=== PATIENT | female | born 1960 | race Caucasian/White ===

== ENCOUNTER 2019-09-17 14:45 | Emergency (ER) | payer OTHER ==
[2019-09-17] MEDS ORDERED: CLINDAMYCIN 900 MG/50 ML 50 ML IV ONE (14:59)
[2019-09-17 15:12] LABS: BASOPHILS % (AUTO) 0.2 %; EOSINOPHILS # (AUTO) 0.1 10^3/uL (0.0-0.7); EOSINOPHILS % (AUTO) 0.8 %; HGB - HEMOGLOBIN 12.9 g/dL (12.0-16.0); LYMPHOCYTES # (AUTO) 1.5 10^3/uL (1.5-3.5); LYMPHOCYTES % (AUTO) 15.8 %; MEAN CORPUSCULAR HEMOGLOBIN 27.9 pg (27.0-31.0); MEAN CORPUSCULAR VOLUME 89.8 fL (81.0-99.0); MONOCYTES # (AUTO) 0.6 10^3/uL (0.0-1.0); MONOCYTES % (AUTO) 6.7 %; NEUTROPHILS # (AUTO) 7.2 10^3/uL (1.5-6.6); NEUTROPHILS % (AUTO) 76.1 %; PLT - PLATELET COUNT 261 10^3/uL (130-450); RED BLOOD COUNT 4.63 10^6/uL (4.20-5.40); RED CELL DISTRIBUTION WIDTH 13.1 % (12.0-15.0); WHITE BLOOD COUNT 9.5 x10^3/uL (4.8-10.8)
[2019-09-17 15:23] LABS: CALCIUM 9.1 mg/dL (8.5-10.3); CREATININE 0.6 mg/dL (0.4-1.0)
--- NOTE | 2019-09-17 15:24 | ED Physician Documentation ---
PD HPI HEENT - Stated complaint Stated Complaint: RT FACE SWELLING - Chief complaint Chief Complaint: Heent - History obtained from History obtained from: Patient - Additional information Additional information: 58-year-old woman with type 2 diabetes presents with worsening dental pain. She has had severe dental pain from a Right mandibular molar for the last few nights. Started dentist yesterday was started on clindamycin. Despite that she has more pain and swelling and she feels like her neck is swollen and she cannot open her mouth all the way. No fevers. 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 : None HEENT: None Psych: None Musculoskeletal: None Derm: None - Past Surgical History Past Surgical History: No - Allergies Allergies/Adverse Reactions: Allergies Allergy/AdvReac Type Severity Reaction Status Date / Time Penicillins Allergy Anaphylaxis Verified 09/17/19 14:53 Sulfa (Sulfonamide Allergy Anaphylaxis Verified 09/17/19 14:53 Antibiotics) - Social History Does the pt smoke?: No Smoking Status: Never smoker Does the pt have substance abuse?: No PD ED PE NORMAL - Vitals Vital signs reviewed: Yes - General General: Alert and oriented X 3, No acute distress - HEENT HEENT: Other (She does have trismus on exam, can only open the mouth about 2 fingerbreadths. There is no sublingual edema, but she does have some sublingual tenderness. There is some mild brawny edema around the angle of the jawline down onto the right side of the right neck. No obvious adenopathy.) - Neck Neck: Supple, no meningeal sign, No bony TTP - Cardiac Cardiac: RRR, No murmur - Respiratory Respiratory: No respiratory distress, Clear bilaterally - Abdomen Abdomen: Normal bowel sounds, Soft, Non tender - Back Back: No CVA TTP, No spinal TTP - Derm Derm: Warm and dry, No rash - Extremities Extremities: No edema, No calf tenderness / cord - Neuro Neuro: Alert and oriented X 3, Normal speech Results - Vitals Vitals: Vital Signs - 24 hr 09/17/19 14:51 Temperature 36.6 C Heart Rate 73 Respiratory 14 Rate Blood Pressure 161/77 H O2 Saturation 97 Oxygen O2 Source Room air - Labs Labs: Laboratory Tests 09/17/19 09/17/19 15:05 15:05 WBC 9.5 RBC 4.63 Hgb 12.9 Hct 41.6 MCV 89.8 MCH 27.9 MCHC 31.0 L RDW 13.1 Plt Count 261 MPV 9.0 Neut # (Auto) 7.2 H Lymph # (Auto) 1.5 [place] # (Auto) 0.6 Eos # (Auto) 0.1 Baso # (Auto) 0.0 Absolute Nucleated RBC 0.00 Nucleated RBC % 0.0 Sodium 138 Potassium 3.6 Chloride 101 Carbon Dioxide 26 Anion Gap 11.0 BUN 13 Creatinine 0.6 Estimated GFR (MDRD) 103 Glucose 146 H Calcium 9.1 - Rads (name of study) CT Neck Radiology: EMP read contemporaneously (Right mandibular region subcutaneous edema, adenopathy and masseter myositis without underlying abscess or evidence of osteomyelitis. Groundglass in the lung apices.) PD MEDICAL DECISION MAKING - ED course ED course: 58-year-old woman with history of diabetes, presentation concerning for early Gilbert's. CT without any abscess. Case discussed by phone with Dr. Guru Isaacs, he will see her in the office tomorrow as there does not seem to be an indication for surgical procedure now. Received 900 mg of clindamycin IV here. Departure - Departure Disposition: 01 Home, Self Care Clinical Impression: Dental abscess Condition: Good Record reviewed to determine appropriate education?: Yes Instructions: ED Dental Abscess Facial Cellulitis Comments: As discussed, the oral surgeon knows about you and you need to follow-up with him tomorrow, his name is Guru Isaacs, his office is in [place], [place] [address], [place], [address]. Call first thing in the morning at [phone]. Continue the antibiotics and painkillers that your dentist gave you.
[2019-09-17] MEDS ORDERED: IOVERSOL 320 100 ML VIAL IVP ONE ×2 (15:37→15:56)
[2019-09-17] MEDS ORDERED: KETOROLAC 30 MG/ML VIAL IVP STA (16:03)
--- NOTE | 2019-09-17 16:26 | CT Report ---
PROCEDURE: SOFT TISSUE NECK W INDICATIONS: R mandibular infection, poss ludwigs CONTRAST: IV CONTRAST: Optiray 320 ml: 100 PO CONTRAST: *NO PO CONTRAST TECHNIQUE: After the administration of intravenous contrast, 3.0 mm axial sections acquired from the sella to th e aortic arch. Additional oblique axial 3.0 mm sections acquired through the pharynx. 3 mm thick co crystal reformats were generated. For radiation dose reduction, the following was used: automated exp osure control, adjustment of mA and/or kV according to patient size. COMPARISON: None. FINDINGS: Image quality: Excellent. Lymph nodes: Right cervical and submental lymph nodes are more numerous on the right than left and mi ldly enlarged. Vessels: Visualized vasculature appears patent. Neck spaces: The oropharynx, nasopharynx, and pharynx demonstrate no mucosal lesions. The vocal cor ds, false vocal cords, pyriform sinuses, epiglottis, vallecula, and tongue base all appear normal. E xtramucosal spaces appear unremarkable. Glands: There is prominence of the right submandibular gland. The parotid glands appear symmetric. T he thyroid gland is normal. Miscellaneous: There is swelling and subcutaneous edema within the tissues of the right mandibular a harish and extending past the level of the thyroid cartilage. There are no drainable fluid collections. Hazy edema involves the right superficial masseter muscle which is thickened. Visualized brain and orbits appear normal. Lung apices demonstrate numerous small nodular groundglas s opacities in the apices, no dense consolidation.. Bones: Periodontal lucencies involving the posterior mandibular molars on the right and left bilater ally. Cortex appears intact. Moderate degenerative disc and endplate disease in the cervical spine and reversal of the normal cerv ical lordosis, potentially reactive. No suspicious bony lesions. Left maxillary sinus mucus retention cyst posteriorly. Visualized sinuses and mastoids appear otherwise unremarkable. IMPRESSION: 1. Right mandibular region subcutaneous edema, adenopathy, and masseter myositis without underlying a bscess or evidence of osteomyelitis. 2. Groundglass and nodular appearance present in both lung apices. Correlate clinically and consider chest imaging if the patient is symptomatic. Reviewed by: Alice Diaz MD on 09/17/2019 3:24 PM BROCK Approved by: Alice Diaz MD on 09/17/2019 3:24 PM AKDT Station ID: [id number]
[2019-09-17 17:05] VITALS: BP 158/119
== END 2019-09-17 17:12 | disposition home or self-care (01) ==
LOC: ED 14:45
DX: K04.7 Periapical abscess without sinus (principal); E11.9 Type 2 diabetes mellitus without complications
CPT/HCPCS: 36415; 70491; 80048; 85025; 96365; 96375; 99284; Q9967

== ENCOUNTER 2020-06-18 11:07 | Outpatient (CLI) | payer SELFPAY ==
[2020-06-18 15:33] LABS: ALBUMIN 4.1 g/dL (3.2-5.5); BUN - BLOOD UREA NITROGEN 21 mg/dL (6-20); CALCIUM 9.5 mg/dL (8.5-10.3); CARBON DIOXIDE - CO2 30 mmol/L (21-32); CHLORIDE 96 mmol/L (101-111); CHOLESTEROL 109 mg/dL; CREATININE 0.6 mg/dL (0.4-1.0); GFR - MDRD 103 (>89); GLUCOSE 190 mg/dL (70-100); HDL CHOLESTEROL 36 mg/dL; LDL CHOLESTEROL,CALCULATED 12 mg/dL; LDL/HDL RATIO 0.3 (<4.4); POTASSIUM 4.3 mmol/L (3.5-5.0); SODIUM 135 mmol/L (135-145); TRIGLYCERIDES 306 mg/dL; VLDL CHOLESTEROL 61 mg/dL
[2020-06-18 19:35] LABS: ESTIMATED AVERAGE GLUCOSE 180 mg/dL (70-100); HEMOGLOBIN A1c% 7.9 % (4.27-6.07)
== END 2020-06-18 11:08 | disposition home or self-care (01) ==
LOC: LAB.S 11:07
PROVIDERS: ATTEND Family Medicine
DX: E11.69 Type 2 diabetes mellitus with other specified complication (principal)
CPT/HCPCS: 36415; 80048; 80061; 82040; 83036; 83721

== ENCOUNTER 2022-10-01 14:57 | Outpatient (CLI) | payer OTHER | END 2022-10-01 14:58 | disposition EMS.NT | LOC: EMS 14:57 | DX: S61.452A Open bite of left hand, initial encounter (principal); S51.852A Open bite of left forearm, initial encounter; W54.0XXA Bitten by dog, initial encounter; Y93.K9 Activity, other involving animal care; Y92.89 Other specified places as the place of occurrence of the external cause; Y99.2 Volunteer activity ==

== ENCOUNTER 2022-12-27 12:17 | Outpatient (CLI) | payer BC ==
[2022-12-27 12:40] LABS: BASOPHILS # (AUTO) 0.1 10^3/uL (0.0-0.1); BASOPHILS % (AUTO) 0.8 %; EOSINOPHILS # (AUTO) 0.3 10^3/uL (0.0-0.7); EOSINOPHILS % (AUTO) 2.7 %; HCT - HEMATOCRIT 41.7 % (37.0-47.0); HGB - HEMOGLOBIN 12.3 g/dL (12.0-16.0); LYMPHOCYTES # (AUTO) 1.9 10^3/uL (1.5-3.5); LYMPHOCYTES % (AUTO) 21.1 %; MEAN CORPUSCULAR HEMOGLOBIN 25.4 pg (27.0-31.0); MEAN CORPUSCULAR HGB CONC 29.5 g/dL (32.0-36.0); MEAN PLATELET VOLUME 9.3 fL (7.9-10.8); MONOCYTES # (AUTO) 0.5 10^3/uL (0.0-1.0); MONOCYTES % (AUTO) 5.7 %; NEUTROPHILS # (AUTO) 6.3 10^3/uL (1.5-6.6); NEUTROPHILS % (AUTO) 69.4 %; PLT - PLATELET COUNT 295 10^3/uL (130-450); RED BLOOD COUNT 4.85 10^6/uL (4.20-5.40); RED CELL DISTRIBUTION WIDTH 14.3 % (12.0-15.0); WHITE BLOOD COUNT 9.1 x10^3/uL (4.8-10.8)
[2022-12-27 13:00] LABS: ALBUMIN 4.1 g/dL (3.2-5.5); ALBUMIN/GLOBULIN RATIO 1.4 (1.0-2.2); ALKALINE PHOSPHATASE 60 IU/L (42-121); ALT ALANINE AMINOTRANSFERASE 19 IU/L (10-60); AST ASPARTATE AMINOTRANSFERASE 15 IU/L (10-42); BILIRUBIN,TOTAL 0.4 mg/dL (0.2-1.0); BUN - BLOOD UREA NITROGEN 23 mg/dL (6-20); CALCIUM 9.2 mg/dL (8.5-10.3); CARBON DIOXIDE - CO2 34 mmol/L (21-32); CHLORIDE 100 mmol/L (101-111); CHOL/HDL RATIO 2.7 (<4.4); CHOLESTEROL 104 mg/dL; CREATININE 0.5 mg/dL (0.6-1.3); GFR - MDRD 125 (>89); GLUCOSE 106 mg/dL (74-104); HDL CHOLESTEROL 38 mg/dL; LDL CHOLESTEROL,CALCULATED 21 mg/dL; LDL/HDL RATIO 0.6 (<4.4); SODIUM 137 mmol/L (135-145); TOTAL PROTEIN 7.1 g/dL (6.4-8.9); TRIGLYCERIDES 224 mg/dL (48-352); VLDL CHOLESTEROL 45 mg/dL
[2022-12-27 13:06] LABS: CREATININE,URINE 69.4 mg/dL; MICROALBUM/CREATININE RATIO,UR 24.5 ug/mg (<30.0); MICROALBUMIN,URINE 1.7 mg/dL
[2022-12-27 13:45] LABS: ESTIMATED AVERAGE GLUCOSE 151 mg/dL (70-100); HEMOGLOBIN A1c% 6.9 % (4.27-6.07)
== END 2022-12-27 12:18 | disposition home or self-care (01) ==
LOC: LAB 12:17
PROVIDERS: ATTEND Physician Assistant
DX: E11.69 Type 2 diabetes mellitus with other specified complication (principal); E78.5 Hyperlipidemia, unspecified; E78.1 Pure hyperglyceridemia; I10 Essential (primary) hypertension
CPT/HCPCS: 36415; 80053; 80061; 82043; 82306; 82570; 82607; 83036; 83721; 85025

== ENCOUNTER 2023-04-06 09:06 | Outpatient (CLI) | payer BC ==
--- NOTE | 2023-04-06 09:39 | Sleep Patient Instructions ---
Sleep Center Visit Summary - Patient Visit Information Reason for Visit: Initial consultation - Patient Instructions Instructions Attached: Sleep Study Home Monitor Additional Instructions: You will be completing a sleep study, either an in-lab polysomnography (PSG) or home sleep study (HST). You will follow-up in the sleep care office after the sleep study is completed to hear the results and talk about therapy, if needed. You will be called by our office staff to schedule this appointment, but you may contact us with any questions. - Clinic Information Contact: [facility] [address] [place] [address] [email or web address] T: [phone]
--- NOTE | 2023-04-06 09:49 | SLEEP CARE CONSULTATION ---
Information from patient questionnaire entered by Jaime Bustos. I have reviewed and concur with the information entered by Jaime Bustos. This document represents the service I personally performed and the decisions made by me, Pricila Lainez ARNP. History of Present Illness Service Date and Time: 04/06/2023 09 Reason for Visit: New patient ( ), Previously diagnosed sleep apnea Chief Complaint: reports: Insomnia, Unrefreshed sleep, Snoring, Excessive daytime sleepiness, Observed pauses in breathing, Fatigue, Frequent awakenings at night Date of Onset: SEVERAL MONTHS PROGESSIVELY WORSE Usual bedtime: 9 Time it takes to fall asleep: SOMETIMES HOURS Snores at night: Yes Observed to quit breathing while asleep: Yes Sleeps alone due to snoring: No Number of times waking at night: 2-5 Reasons for waking at night: reports: Bathroom, Other (UNKNOWN). denies: Choking, Snoring, Gasping for air Toss, Turn, or Twitch while sleeping: Yes Recalls having dreams: Yes Usually gets out of bed at: 6AM-730AM Feels refreshed in the morning: Yes (sometimes) Morning headache: No Sleepy or fatigued during the day: Yes (some unintentional naps) Ever fallen asleep while driving: No Takes day naps: Yes (3-4 days a week; last 1 hour; would like to take daily) Dreams during day naps: Yes Prior sleep studies: Yes Additional HPI information: WAI HOLLEY was previously diagnosed to have severe, AHI 47, obstructive sleep apnea-hypopnea syndrome as documented in titration study done at [facility] on 09/29/2009 and comes in today to re-establish care. Her current complaints are excessive daytime sleepiness, fatigue, frequent night awakenings, insomnia, observed pauses in breathing, snoring and unrefreshed sleep. Patient states she lost a lot of weight and so she stopped using her CPAP because she did not feel she needed it. She has since regained the weight and her previous symptoms have returned and are worsening. She was last tested around 2004 and did a titration study here in 2009. She states her tells her that she snores loudly and is having pauses in breathing. She does not wake up feeling refreshed all the time and feels she is waking up frequently at night. She can take hours to fall asleep at the beginning of the night. 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 Patient is and lives in [place]. Have you smoked in the past 12 months: No Cigarettes per day (20/pack): 30 Years of smokin Quit date: 1989 Smoking Pack Years: 30.0 Alcohol use: No Caffeine use: No Family History Family history of sleep disordered breathing: Yes Family Hx Sleep Apnea: Mother: Sleep apnea - Treated, Sibling: Sleep apnea - Treated Allergies and Home Medications Known drug allergies: Yes (as listed) Drug allergies reviewed: Yes Home medication list reviewed: Yes (as listed) Allergy and home medication list: Allergies Penicillins Allergy (Verified 04/05/23 12:13) Anaphylaxis Sulfa (Sulfonamide Antibiotics) Allergy (Verified 04/05/23 12:13) Anaphylaxis Home Medications Medication Instructions Recorded Confirmed Last Taken Type Apixaban [Eliquis] See Rx Instructions .ROUTE .COMPLEX 04/06/23 04/06/23 Unknown History Atorvastatin Calcium See Rx Instructions .ROUTE .COMPLEX 04/06/23 04/06/23 Unknown History Insulin Aspart [Insulin Aspart See Rx Instructions .ROUTE .COMPLEX 04/06/23 04/06/23 Unknown History Flexpen] Insulin NPH Human Isophane See Rx Instructions .ROUTE .COMPLEX 04/06/23 04/06/23 Unknown History [Novolin N Flexpen] Losartan [Cozaar] See Rx Instructions .ROUTE .COMPLEX 04/06/23 04/06/23 Unknown History Omeprazole See Rx Instructions .ROUTE .COMPLEX 04/06/23 04/06/23 Unknown History Ubidecarenone [Coenzyme Q-10] See Rx Instructions .ROUTE .COMPLEX 04/06/23 04/06/23 Unknown History dilTIAZem HCL [Diltiazem 24Hr ER] See Rx Instructions .ROUTE .COMPLEX 04/06/23 04/06/23 Unknown History Review of Systems Weight gain over past 5 years: 70 Cardiovascular: reports: high blood pressure, palpitations, irregular heart rate or pulse Respiratory: reports: shortness of breath, wheeze, chronic cough Gastrointestinal: reports: heartburn Neurological: denies: headaches Psychiatric: denies: anxiety, depression Ear/Nose/Throat: denies: tonsillectomy Endocrine: reports: sluggishness Musculoskeletal: reports: joint pain, muscle pain or cramping Physical Exam Vital signs obtained and entered by: JAIME Ashraf MA Blood Pressure: 149/72 (RIGHT ARM) Cuff size: regular Heart Rate: 79 O2 Saturation: 87 Height: 5 ft 6.75 in Weight: 237 lb 3.2 oz Body Mass Index: 37.4 BMI Classification: Obese Neck circumference: 19.75 Mouth and throat: narrow oropharynx Soft palate: long Hard palate: normal Uvula: normal Uvula visualization: 0% Mallampati Class IV Tongue: normal in size Tonsils: 2+ Neck: normal w/o lymphadenopathy or thyromegaly Heart: regular rate and rhythm Lungs: clear bilaterally Impression and Plan 1. Suspected Obstructive Sleep Apnea-Hypopnea Syndrome, as previously diagnosed and as suggested by a history of loud and irregular snoring, observed cessation of breath while asleep, frequent awakening during the night, unrefreshed sleep, cognitive impairment, and excessive daytime sleepiness. She has not been using a CPAP for many years and has gained about 70 pounds in the last 5 years. I recommend proceeding to polysomnography to confirm the diagnosis and to assess severity. I obtained agreement to proceed. The pathophysiology of obstructive sleep apnea-hypopnea syndrome was discussed with the patient and health risks of cardiovascular and cerebrovascular disease if not treated. Risks of drowsy driving discussed in detail and patient advised to avoid long distance driving and to mandrel puller at the first sign of drowsiness. Patient agreed to plan. 2. Obesity, unspecified. Currently patients BMI is 37.4. Obesity increases the risk of apnea, CPAP pressure requirements and overall health risks especially cardiovascular and diabetes. Thus patient is advised to lose weight. * Schedule polysomnography +- manual CPAP titration study and return in 1-2 weeks after the study to discuss result and initiate therapy. * Avoid long distance driving or driving when feeling sleepy. * Avoid alcohol, sedative and muscle relaxant around bedtime. * Attempt to lose weight. * Review instructions provided by trained office staff on how to prepare for the sleep study. * Return for follow-up after sleep study completed. Counseling Topics: Weight loss health impact Plan: PSG/HST Visit Type: In Office Time Spent with Patient (minutes): 30 Provider Statement: I spent 100% of the Face to Face Visit with the patient with greater than 50% spent counseling the patient and coordination of care.
[2023-04-06 09:55] VITALS: BP 149/72; O2SAT 87
== END 2023-04-06 09:07 | disposition home or self-care (01) ==
LOC: SC 09:06
PROVIDERS: ATTEND Nurse Practitioner Family
DX: G47.10 Hypersomnia, unspecified (principal); R53.83 Other fatigue; G47.8 Other sleep disorders; R06.83 Snoring; R06.81 Apnea, not elsewhere classified; E11.9 Type 2 diabetes mellitus without complications; I10 Essential (primary) hypertension; I48.91 Unspecified atrial fibrillation; E66.9 Obesity, unspecified; Z68.37 Body mass index [BMI] 37.0-37.9, adult
CPT/HCPCS: 99203; 99212

== ENCOUNTER 2023-05-09 14:46 | Outpatient (CLI) | payer BC | END 2023-05-09 23:59 | disposition critical access hospital (66) | LOC: EMS 14:46 | DX: R06.02 Shortness of breath (principal); R09.89 Other specified symptoms and signs involving the circulatory and respiratory systems; I16.9 Hypertensive crisis, unspecified; I10 Essential (primary) hypertension | CPT/HCPCS: A0425; A0427 ==

== ENCOUNTER 2023-05-09 15:22 | Inpatient (IN) | payer BC ==
--- NOTE | 2023-05-09 15:39 | ED Physician Documentation ---
PD HPI DYSPNEA - Stated complaint Stated Complaint: LOW O2 - Chief complaint Chief Complaint: Resp - History obtained from History obtained from: Patient - History of Present Illness Inciting event(s): URI Improved by: Other (was Rx Zithromax 5 days pack about 1 1/2 weeks ago without significant improvement ("somewhat better for short time").) Worsened by: Exertion, Coughing Associated symptoms: Cough, Wheezing. No: Fever, Hemoptysis, Chest pain / discomfort, Palpitations, Bilateral edema Similar symptoms before: Has not had sx before Recently seen: Clinic (walk in clinic and referred to ER by EMS with sats 62% there, improved with oxygen and neb enroute by EMS.), Surgery (carpal tunnel surgery 3 weeks ago right wrist, and was told she had somewhat low sats then (but not below 90) and has surgery, so must not have been too alarming to Anesth at the time. She has started with the cough around that time.) Review of Systems Constitutional: reports: Chills, Myalgias, Fatigue Nose: reports: Congestion. denies: Rhinorrhea / runny nose Throat: denies: Sore throat Cardiac: denies: Chest pain / pressure, Palpitations, Pedal edema, Calf pain Respiratory: reports: Dyspnea, Cough, Wheezing GI: reports: Nausea, Diarrhea (loose stools for past couple weeks as well. Nausea but no vomiting.). denies: Abdominal Pain, Vomiting Musculoskeletal: denies: Extremity swelling PD PAST MEDICAL HISTORY - Past Medical History Past Medical History: Yes Cardiovascular: Hypertension, High cholesterol Respiratory: Asthma (not consistent, but intermittent in past. 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 : None HEENT: None Psych: None Musculoskeletal: None Derm: None - Past Surgical History Past Surgical History: No - Present Medications Home Medications: Ambulatory Orders Medication Instructions Recorded Confirmed Insulin Aspart [Insulin Aspart 5 units SUBQ TIDWM 04/06/23 04/06/23 Flexpen] Albuterol Sulfate [Proair 90 mcg IH DAILY 05/09/23 05/09/23 Respiclick] Apixaban [Eliquis] 5 mg PO BID 05/09/23 Atorvastatin Calcium 40 mg PO HS 05/09/23 Insulin NPH Human Isophane 85 units SUBQ BIDWM 05/09/23 [Novolin N Flexpen] Lisinopril/Hydrochlorothiazide 2 each PO DAILY 05/09/23 05/09/23 [Zestoretic 20-12.5 mg Tablet] Losartan Potassium 100 mg PO DAILY 05/09/23 Metformin HCl [Metformin ER 1,000 mg PO BIDWM 05/09/23 Osmotic] Metoprolol Succinate [Toprol Xl] 50 mg PO DAILY 05/09/23 05/09/23 dilTIAZem HCL [Diltiazem 24Hr ER] 180 mg PO DAILY 05/09/23 glipiZIDE [Glipizide] 10 mg PO DAILY 05/09/23 05/09/23 - Allergies Allergies/Adverse Reactions: Allergies Allergy/AdvReac Type Severity Reaction Status Date / Time Penicillins Allergy Anaphylaxis Verified 05/09/23 15:34 Sulfa (Sulfonamide Allergy Anaphylaxis Verified 05/09/23 15:34 Antibiotics) - Social History Does the pt smoke?: No Smoking Status: Never smoker Does the pt drink ETOH?: No Does the pt have substance abuse?: No - Immunizations Immunizations are current?: No - POLST Patient has POLST: No PD ED PE NORMAL - Vitals Vital signs reviewed: Yes - General General: Alert and oriented X 3, No acute distress (has low sats, but not much tachypnea. ), Well developed/nourished - HEENT HEENT: Ears normal, Moist mucous membranes, Pharynx benign - Neck Neck: Supple, no meningeal sign, No adenopathy - Cardiac Cardiac: RRR, No murmur - Respiratory Respiratory: No: Clear bilaterally (decreased tidal volume and diffuse exp wheezing, though not as prominent due to low ability for deep breaths.) - Abdomen Abdomen: Soft, Non tender - Derm Derm: Normal color, Warm and dry - Extremities Extremities: Normal ROM s pain, No edema, No calf tenderness / cord, Other (right volar wrist with healing surgical wound without signs of infection. Forearm without tenderness, swelling, nor warmth. ) - Neuro Neuro: Alert and oriented X 3, No motor deficit, Normal speech Results - Vitals Vitals: Vital Signs - 24 hr 05/09/23 05/09/23 05/09/23 15:29 15:48 16:00 Temperature 36.5 C Heart Rate 85 82 79 Respiratory 18 20 26 H Rate Blood Pressure 180/91 H 177/89 H 176/88 H O2 Saturation 100 97 89 L If not protocol 9 4 : Oxygen Flow, liters/minute 05/09/23 05/09/23 05/09/23 16:02 16:45 17:24 Temperature Heart Rate 82 81 85 Respiratory 22 26 H 18 Rate Blood Pressure 164/85 H O2 Saturation 92 If not protocol 6 : Oxygen Flow, liters/minute Oxygen O2 Source Nasal cannula Oxygen Flow Rate 6 - EKG (time done) 15:58 EKG releavant findings:: EKG personally interpreted by author of this note. Relevant findings are: Rate: Rate (enter#) (79) Rhythm: NSR [place]: Normal Intervals: Normal [place] QRS: Normal Ischemia: Normal ST segments. No: ST elevation c/w ischemia, ST depression - Labs Labs: Laboratory Tests 05/09/23 05/09/23 05/09/23 15:55 16:04 16:04 WBC 11.8 H RBC 4.91 Hgb 11.3 L Hct 42.5 MCV 86.6 MCH 23.0 L MCHC 26.6 L RDW 16.3 H Plt Count 424 MPV 9.7 Neut # (Auto) 10.0 H Lymph # (Auto) 1.2 L [place] # (Auto) 0.5 Eos # (Auto) 0.0 Baso # (Auto) 0.1 Absolute Nucleated RBC 0.00 Nucleated RBC % 0.0 Manual Slide Review Indicated Platelet Estimate NORMAL (130-450,000) Platelet Morphology NORMAL APPEARANCE RBC Morph Micro Appear 1+ HYPOCHROMASIA Sodium Potassium Chloride Carbon Dioxide Anion Gap BUN Creatinine Estimated GFR (MDRD) Glucose Calcium Magnesium 1.8 Total Bilirubin AST ALT Alkaline Phosphatase B-Natriuretic Peptide Total Protein Albumin Globulin Albumin/Globulin Ratio Lipase Nasal Adenovirus (PCR) NOT DETECTED Nasal B. parapertussis DNA (PCR) NOT DETECTED Nasal Coronavir 229E PCR NOT DETECTED Nasal Coronavir HKU1 PCR NOT DETECTED Nasal Coronavir NL63 PCR NOT DETECTED Nasal Coronavir OC43 PCR NOT DETECTED Nasal Enterovir/Rhinovir PCR NOT DETECTED Nasal Influenza B PCR NOT DETECTED Nasal Influenza A PCR NOT DETECTED Nasal Parainfluen 1 PCR NOT DETECTED Nasal Parainfluen 2 PCR NOT DETECTED Nasal Parainfluen 3 PCR NOT DETECTED Nasal Parainfluen 4 PCR NOT DETECTED Nasal RSV (PCR) NOT DETECTED Nasal B.pertussis DNA PCR NOT DETECTED Nasal C.pneumoniae (PCR) NOT DETECTED [place] Human Metapneumo PCR NOT DETECTED Nasal M.pneumoniae (PCR) NOT DETECTED Nasal SARS-CoV-2 (PCR) NOT DETECTED 05/09/23 05/09/23 16:04 16:04 WBC RBC Hgb Hct MCV MCH MCHC RDW Plt Count MPV Neut # (Auto) Lymph # (Auto) [place] # (Auto) Eos # (Auto) Baso # (Auto) Absolute Nucleated RBC Nucleated RBC % Manual Slide Review Platelet Estimate Platelet Morphology RBC Morph Micro Appear Sodium 141 Potassium 4.5 Chloride 100 L Carbon Dioxide 38 H Anion Gap 3.0 L BUN 16 Creatinine 0.6 Estimated GFR (MDRD) 102 Glucose 81 Calcium 9.7 Magnesium Total Bilirubin 0.6 AST 20 ALT 22 Alkaline Phosphatase 56 B-Natriuretic Peptide 195 H Total Protein 7.8 Albumin 3.9 Globulin 3.9 Albumin/Globulin Ratio 1.0 Lipase 34 Nasal Adenovirus (PCR) Nasal B. parapertussis DNA (PCR) Nasal Coronavir 229E PCR Nasal Coronavir HKU1 PCR Nasal Coronavir NL63 PCR Nasal Coronavir OC43 PCR Nasal Enterovir/Rhinovir PCR Nasal Influenza B PCR Nasal Influenza A PCR Nasal Parainfluen 1 PCR Nasal Parainfluen 2 PCR Nasal Parainfluen 3 PCR Nasal Parainfluen 4 PCR Nasal RSV (PCR) Nasal B.pertussis DNA PCR Nasal C.pneumoniae (PCR) [place] Human Metapneumo PCR Nasal M.pneumoniae (PCR) Nasal SARS-CoV-2 (PCR) - Rads (name of study) chest xray Relevant Findings:: Prelim report reviewed (low lung volume. No infiltrates/consolidations. ), EMP independent interpretation of test (no noted pneumonia. ) PD Medical Decision Making - ED course Complexity details: reviewed results, re-evaluated patient (breathing improved with better tidal volume but still running low 90s sats on NC. Will need hospitalization for Oxygen, continued nebs, steroids, antibiotics since has had prolonged symptoms and not an obvious viral cause. ), considered differential (Feel with some loose stool diarrhea and nausea as well as a cough and dyspnea for the last 3 weeks. She had started this prior to having a carpal tunnel surgery but was mild at the time. She states has increased steadily.), d/w wong ent, d/w human capital consultant (Hospitalist Dr. Headley. ) ED course: Has less work of breathing and some increased tidal volume after nebulizers x 2. Given steroids as well. Sounds more likely a viral illness but the duration of it along with a negative respiratory panel negative chest x-ray has me wondering about a back [place] bronchitis versus atypical pneumonia. I would lean towards antibiotics as well. However main focus on oxygen and nebulizer and steroids. She is currently at wavering between 90 and 96% on 5 L nasal cannula. I did not test her back on room air as it is seems doubtful she would be normoxic on room air at this point. I talked with the hospitalist. Departure - Departure Disposition: [facility] DC/Xfer Clinical Impression: Hypoxia, Upper respiratory infection, Wheezing, Diarrhea Condition: Stable Record reviewed to determine appropriate education?: Yes Discharge Date/Time: 05/09/23 18:15
[2023-05-09] MEDS: IPRATROPIUM/ALBUTEROL 3 ML NEB INH STA (16:00)
--- NOTE | 2023-05-09 16:29 | XRAY Report ---
PROCEDURE: Chest 1V INDICATIONS: chest pain TECHNIQUE: One view of the chest was acquired. COMPARISON: None. FINDINGS: Surgical changes and devices: None. Lungs and pleura: Low lung volumes. No dense consolidation or pleural effusion. Prominent interstiti um may be an artifact of low lung volumes. Mediastinum: Borderline large heart. Bones and chest wall: Degenerative changes. IMPRESSION: Low lung volumes. No dense consolidation or pleural effusion. Limited single view portable radiograph . Reviewed by: Jamarcus Laureano MD on 05/09/2023 4:28 PM PDT Approved by: Jamarcus Laureano MD on 05/09/2023 4:28 PM PDT Station ID: [id number]
[2023-05-09 16:46] LABS: BASOPHILS # (AUTO) 0.1 10^3/uL (0.0-0.1); BASOPHILS % (AUTO) 0.5 %; EOSINOPHILS % (AUTO) 0.3 %; HCT - HEMATOCRIT 42.5 % (37.0-47.0); HGB - HEMOGLOBIN 11.3 g/dL (12.0-16.0); LYMPHOCYTES # (AUTO) 1.2 10^3/uL (1.5-3.5); LYMPHOCYTES % (AUTO) 10.3 %; MEAN CORPUSCULAR HGB CONC 26.6 g/dL (32.0-36.0); MEAN CORPUSCULAR VOLUME 86.6 fL (81.0-99.0); MEAN PLATELET VOLUME 9.7 fL (7.9-10.8); MONOCYTES # (AUTO) 0.5 10^3/uL (0.0-1.0); MONOCYTES % (AUTO) 3.9 %; NEUTROPHILS % (AUTO) 84.4 %; PLT - PLATELET COUNT 424 10^3/uL (130-450); RED BLOOD COUNT 4.91 10^6/uL (4.20-5.40); RED CELL DISTRIBUTION WIDTH 16.3 % (12.0-15.0); WHITE BLOOD COUNT 11.8 x10^3/uL (4.8-10.8)
[2023-05-09 16:55] LABS: SLIDE REVIEW? Indicated
[2023-05-09 16:57] LABS: CORONAVIRUS 229E-RESP PCR NOT DETECTED; CORONAVIRUS HKU1-RESP PCR NOT DETECTED; CORONAVIRUS NL63-RESP PCR NOT DETECTED; CORONAVIRUS OC43-RESP PCR NOT DETECTED; HUMAN METAPNEUMOVIRUS NOT DETECTED; INFLUENZA A- RESP PCR PANEL NOT DETECTED; RHINOVIRUS/ENTEROVIRUS NOT DETECTED; SARS-CoV-2 -RESP PCR PANEL NOT DETECTED
[2023-05-09 16:58] LABS: B. PARAPERTUSSIS- RESP PCR PAN NOT DETECTED; B. PERTUSSIS- RESP PCR PANEL NOT DETECTED; C. PNEUMONIAE- RESP PCR PANEL NOT DETECTED; INFLUENZA B - RESP PCR PANEL NOT DETECTED; M. PNEUMONIAE- RESP PCR PANEL NOT DETECTED; PARAINFLUENZA VIRUS 1 NOT DETECTED; PARAINFLUENZA VIRUS 2 NOT DETECTED; PARAINFLUENZA VIRUS 3 NOT DETECTED; PARAINFLUENZA VIRUS 4 NOT DETECTED; RSV- RESP PCR PANEL NOT DETECTED
[2023-05-09 17:00] LABS: ALBUMIN 3.9 g/dL (3.2-5.5); BILIRUBIN,TOTAL 0.6 mg/dL (0.2-1.0); CALCIUM 9.7 mg/dL (8.5-10.3); CREATININE 0.6 mg/dL (0.6-1.3); POTASSIUM 4.5 mmol/L (3.5-4.5); TOTAL PROTEIN 7.8 g/dL (6.4-8.9)
[2023-05-09] MEDS: DEXAMETHASONE 10 MG/ML VIAL IVP STA (17:18)
[2023-05-09 17:20] LABS: PLATELET ESTIMATE, MANUAL NORMAL (130-450,000) (NORMAL); PLATELET MORPHOLOGY NORMAL APPEARANCE (NORMAL)
[2023-05-09] MEDS: ALBUTEROL NEB 2.5 MG/3 ML INH STA (17:23)
[2023-05-09] MEDS ORDERED: ONDANSETRON ODT 4 MG TABLET TL PRN (17:31)
[2023-05-09] MEDS ORDERED: SODIUM CHLORIDE FLUSH 0.9% 10 ML SYRINGE IVP PRN (17:31)
[2023-05-09] MEDS ORDERED: ONDANSETRON 4 MG/2 ML VIAL IVP PRN (17:31)
[2023-05-09] MEDS ORDERED: ACETAMINOPHEN 325 MG TABLET PO PRN (17:31)
[2023-05-09] MEDS: DOXYCYCLINE 100 MG TABLET PO STA (17:52)
[2023-05-09] MEDS: cefTRIAXone 1 GM VIAL IVP STA (17:54)
--- NOTE | 2023-05-09 17:58 | HISTORY & PHYSICAL EXAMINATION ---
Chief Complaint - Chief Complaint Chief Complaint: Shortness of breath History of Present Illness - Admitted From Admitted From:: ED - History Obtained From Records Reviewed: Yes History obtained from: Patient Exam Limitations: None - History of Present Illness HPI Comment/Other: Patient is a 62-year-old female with a past medical history of mild intermittent pAfib, asthma, hypertension, hyperlipidemia, morbid obesity, obstructive sleep apnea not on CPAP, insulin-dependent type 2 diabetes who presented to the ED due to complaints of shortness of breath. In the ED she was noted to be hypoxic requiring 4 L of oxygen via nasal cannula. Patient reported that she had been feeling short of breath for approximately 3 weeks. This began after having carpal tunnel surgery and increased steadily. She denies any chest pain, hemoptysis. She was evaluated by an urgent care clinic where she was given a Z-Arnoldo which provided minimal relief. In the ED a chest x-ray was performed which was unremarkable. Lab work primarily revealed an elevated bicarbonate. She was given nebulizer treatment and started on dexamethasone. Her viral panel was negative. Patient reports that she has not been using her CPAP for several years as she had lost a significant amount of weight but now has gained it back. She is in line to get a repeat sleep study. Patient is a non-smoker. She does not use any inhalers at home. No prior history of lung disease. History - Past Medical History Cardiovascular: reports: Hypertension, High cholesterol Respiratory: reports: Asthma (not consistent, but intermittent in past. ) Neuro: reports: None Endocrine/Autoimmune: reports: Type 2 diabetes GI: reports: None [employer]: reports: None : reports: None HEENT: reports: None Psych: reports: None Musculoskeletal: reports: None Derm: reports: None MRSA Hx?: No - POLST Patient has POLST: No Meds/Allgy - Home Medications Home Medications: Ambulatory Orders Medication Instructions Recorded Confirmed Insulin Aspart [Insulin Aspart 5 units SUBQ TIDWM 04/06/23 04/06/23 Flexpen] Albuterol Sulfate [Proair 90 mcg IH DAILY 05/09/23 05/09/23 Respiclick] Apixaban [Eliquis] 5 mg PO BID 05/09/23 Atorvastatin Calcium 40 mg PO HS 05/09/23 Insulin NPH Human Isophane 85 units SUBQ BIDWM 05/09/23 [Novolin N Flexpen] Lisinopril/Hydrochlorothiazide 2 each PO DAILY 05/09/23 05/09/23 [Zestoretic 20-12.5 mg Tablet] Losartan Potassium 100 mg PO DAILY 05/09/23 Metformin HCl [Metformin ER 1,000 mg PO BIDWM 05/09/23 Osmotic] Metoprolol Succinate [Toprol Xl] 50 mg PO DAILY 05/09/23 05/09/23 dilTIAZem HCL [Diltiazem 24Hr ER] 180 mg PO DAILY 05/09/23 glipiZIDE [Glipizide] 10 mg PO DAILY 05/09/23 05/09/23 - Allergies Allergies/Adverse Reactions: Allergies Allergy/AdvReac Type Severity Reaction Status Date / Time Penicillins Allergy Anaphylaxis Verified 05/09/23 15:34 Sulfa (Sulfonamide Allergy Anaphylaxis Verified 05/09/23 15:34 Antibiotics) Review of Systems - Constitutional Constitutional: reports: Fatigue. denies: Fever, Chills - Cardiovascular Cariovascular: reports: Exertional dyspnea. denies: Irregular heart rate, Palpitations, Chest pain, Edema, Lightheadedness, Syncope, Orthopnea - Respiratory Respiratory: reports: Cough, Wheezing, Snoring, SOB at rest, SOB with exertion, Apnea. denies: Sputum production, Hemoptysis, Orthopnea, Pleuritic pain - Gastrointestinal Gastrointestinal: denies: Abdominal pain, Abdominal distention - Neurological Neurological: denies: Focal weakness - All Other Systems All Other Systems: reports: Reviewed and negative Prior Level of Functionality: Independent at home. Exam - Vital Signs Reviewed Vital Signs: Yes Vital Signs: Vital Signs x48h Temp Pulse Resp BP Pulse Ox O2 Flow Rate 05/09/23 17:43 82 25 H 166/80 H 98 05/09/23 17:24 85 18 05/09/23 16:45 81 26 H 164/85 H 92 6 05/09/23 16:02 82 22 05/09/23 16:00 79 26 H 176/88 H 89 L 4 05/09/23 15:48 82 20 177/89 H 97 9 05/09/23 15:29 36.5 C 85 18 180/91 H 100 - Physical Exam General Appearance: positive: Alert, Mild distress Respiratory: positive: Chest non-tender, No respiratory distress, Breath sounds nml. negative: Wheezes Cardiovascular: positive: Regular rate & rhythm, No murmur, No gallop Abdomen: positive: Non-tender, No distention Skin: positive: Warm, Dry Extremities: positive: Nml appearance, No pedal edema Sepsis Event Note (H) - Evaluation Current Stage of Sepsis: Ruled out Conclusion/Plan - Problem List (1) Hypoxia Conclusion/Plan: --Exact etiology of hypoxia is unknown. Her chest x-ray was unremarkable. --Viral panel was negative. Will order a respiratory culture. --BNP is only mildly elevated. She does not show any evidence of fluid overload. Will hold off on ordering a TTE for now. --She does have an elevated bicarbonate on her BMP. Will order an ABG. She is in line to get another sleep study to get a CPAP. --She is on Eliquis. Low risk for pulmonary embolus. --Continue DuoNeb and systemic steroids. (2) JOSUE (obstructive sleep apnea) Conclusion/Plan: --Patient previously had a CPAP but states that she stopped using it after she lost a lot of weight. However now she has gained her weight back. She will be getting a sleep study soon. I believe her pickwickian syndrome is likely contributing to her hypoxia. An ABG is currently pending. (3) Morbid (severe) obesity with alveolar hypoventilation Conclusion/Plan: --As above. (4) Type 2 diabetes mellitus Conclusion/Plan: --A1c is currently pending. She states her last A1c was 6.3. She is on high doses of insulin at home (80 units BID with 7 at mealtimes). Will start her off on Lantus 20 units with 5 at mealtime and high sliding scale. -- Holding home metformin. (5) Hypertension Conclusion/Plan: --Continue home antihypertensives. (6) Paroxysmal atrial fibrillation Conclusion/Plan: --Diagnosed with atrial fibrillation in late 2022. She follows with cardiology at [facility] and has undergone a stress test and TTE. --Continue diltiazem and Eliquis. - Lab Results Lab results reviewed: Yes Fish Bones: 05/09/23 16:04 05/09/23 16:04 - Diagnostic Imaging Results Diagnostic Imaging Results: positive: Final report reviewed
[2023-05-09] MEDS: LACTATED RINGERS 1,000 ML IV SCH (18:28)
[2023-05-09 18:34] LABS: ABG BASE EXCESS 3.8 mmol/L (-2.0-3.0); ABG HCO3 31.4 mmol/L (22.0-26.0); ABG PH 7.32 (7.35-7.45); ABG PO2 71 mmHg (80-100); ABG TCO2 33.3 MMOL/L (21.0-29.0)
[2023-05-09 18:35] LABS: ABG OXYGEN SATURATION 92 % (94-98); ALLEN TEST POSITIVE
[2023-05-09 18:36] LABS: ABG PCO2 62 mmHg (34-45)
[2023-05-09] MEDS ORDERED: INSULIN LISPRO 300 UNIT/3 ML PEN SUBQ SCH (21:00)
[2023-05-09] MEDS: APIXABAN 5 MG TABLET PO SCH (21:02)
[2023-05-09] MEDS: DOXYCYCLINE 100 MG TABLET PO SCH (21:02)
[2023-05-09] MEDS: INSULIN GLARGINE-YFGN 300 UNIT/3 ML PEN SUBQ SCH (21:03)
[2023-05-09] MEDS: INSULIN LISPRO 300 UNIT/3 ML PEN SUBQ SCH (21:03)
[2023-05-09] MEDS: IPRATROPIUM/ALBUTEROL 3 ML NEB INH SCH (22:50)
[2023-05-10] MEDS: SODIUM CHLORIDE FLUSH 0.9% 10 ML SYRINGE IVP SCH (03:00)
[2023-05-10] MEDS: INSULIN LISPRO 300 UNIT/3 ML PEN SUBQ SCH (08:27)
[2023-05-10] MEDS: METOPROLOL SUCCINATE 50 MG TABLET PO SCH (08:29)
[2023-05-10] MEDS: diltiaZEM CD 180 MG CAPSULE PO SCH (08:29)
[2023-05-10] MEDS: lisinopriL 20 MG TABLET PO SCH (08:30)
[2023-05-10] MEDS: hydroCHLOROthiazide 25 MG TABLET PO SCH (08:30)
[2023-05-10] MEDS: predniSONE 20 MG TABLET PO SCH (08:30)
[2023-05-10] MEDS ORDERED: [UNRECOGNIZED DRUG - OTHER] PO SCH (09:00)
[2023-05-10] MEDS ORDERED: LISINOPRIL PO SCH (09:00)
[2023-05-10] MEDS ORDERED: HYDROCHLOROTHIAZIDE PO SCH (09:00)
--- NOTE | 2023-05-10 09:56 | PHARMACY PROGRESS NOTE ---
- Best Possible Medication History Admit Date and Time: 05/09/23 1733 Processed by: Pharmacy Medications reviewed in ED?: No Medication History completed: Yes Patient Interview: Completed Secondary Source(s): Insurance records As the person ultimately responsible for medication therapy, providers are able to order a medication from an existing home medication list in [facility] via the "Reconcile Routine" prior to Confirmation of that medication by network and threat support specialist. Such practice is discouraged except when the physician, in their clinical judgment, deems that a medical need exists for a medication without regard to previous use.
[2023-05-10 09:57] LABS: ESTIMATED AVERAGE GLUCOSE 134 mg/dL (70-100); HEMOGLOBIN A1c% 6.3 % (4.27-6.07)
[2023-05-10] MEDS ORDERED: IPRATROPIUM/ALBUTEROL 3 ML NEB INH SCH (11:09)
[2023-05-10] MEDS: IPRATROPIUM/ALBUTEROL 3 ML NEB INH SCH ×3 (11:48→17:01)
--- NOTE | 2023-05-10 22:41 | PROVIDER PROGRESS NOTE ---
Assessment/Plan - Problem List (1) Hypoxia Assessment/Plan: Etiology of hypoxemia is not clear. Differential diagnosis would include cardiac dysfunction. Most likely etiology is obesity hypoventilation syndrome. Recommend patient undergo an ABG in the morning. Continue to wean oxygen as tolerated. (2) JOSUE (obstructive sleep apnea) Conclusion/Plan: She reports a prior diagnosis of obstructive sleep apnea. She reports she lost a considerable amount of weight but unfortunately has gained the weight back and feels she most likely has obstructive sleep apnea again. She has been scheduled for a home sleep study. (3) Morbid (severe) obesity with alveolar hypoventilation Conclusion/Plan: --As above. (4) Type 2 diabetes mellitus Conclusion/Plan: Hemoglobin A1c is 6.3. (5) Hypertension Conclusion/Plan: Continue, hydrochlorothiazide, diltiazem and losartan. (6) Paroxysmal atrial fibrillation Conclusion/Plan: --Diagnosed with atrial fibrillation in late 2022. She follows with cardiology at [facility] and has undergone a stress test and TTE. --Continue diltiazem and Eliquis. - Current Meds Current Meds: Current Medications Generic Name Dose Route Start Last Admin Trade Name Freq PRN Reason Stop Dose Admin Apixaban 5 mg 05/09/23 21:00 05/10/23 21:03 Apixaban 5 Mg Tablet PO 5 mg BID FIORELLA Administration Diltiazem HCl 180 mg 05/10/23 09:00 05/10/23 08:29 Diltiazem Cd 180 Mg Capsule PO 180 mg DAILY FIORELLA Administration Doxycycline Hyclate 100 mg 05/09/23 21:00 05/10/23 21:03 Doxycycline 100 Mg Tablet PO 05/12/23 20:59 100 mg BID FIORELLA Administration Hydrochlorothiazide 25 mg 05/10/23 09:00 05/10/23 08:30 Hydrochlorothiazide 25 Mg Tablet PO 25 mg DAILY FIORELLA Administration Insulin Glargine-yfgn 20 unit 05/09/23 21:00 05/10/23 21:04 Insulin Glargine-Yfgn 300 Unit/3 Ml Pen SUBQ 20 unit QPM FIORELLA Administration Insulin Human Lispro 5 unit 05/10/23 08:00 05/10/23 17:01 Insulin Lispro 300 Unit/3 Ml Pen SUBQ 5 unit TIDWM FIORELLA Administration Protocol Insulin Human Lispro 3 - 11 unit 05/09/23 21:00 05/10/23 21:04 Insulin Lispro 300 Unit/3 Ml Pen SUBQ 5 unit 0800,1200,1700,2100 FIORELLA Administration Protocol Lisinopril 40 mg 05/10/23 09:00 05/10/23 08:30 Lisinopril 20 Mg Tablet PO 40 mg DAILY FIORELLA Administration Metoprolol Succinate 50 mg 05/10/23 09:00 05/10/23 08:29 Metoprolol Succinate 50 Mg Tablet PO 50 mg DAILY FIORELLA Administration Prednisone 40 mg 05/10/23 09:00 05/10/23 08:30 Prednisone 20 Mg Tablet PO 05/15/23 08:59 40 mg DAILY FIORELLA Administration Sodium Chloride 10 ml 05/10/23 01:00 05/10/23 17:02 Sodium Chloride Flush 0.9% 10 Ml Syringe IVP 10 ml 0100,0900,1700 FIORELLA Administration - Lab Result Fish Bone Diagrams: 05/09/23 16:04 05/09/23 16:04 - Additional Planning My Orders: My Active Orders 05/10/23 Evaluate and Treat OT [OT] Routine Evaluate and Treat PT [PT] Routine 05/10/23 11:45 Nebulizer/MDI Tx. [RC] QID Resp Teach Nebulizer/MDI [RC] .ONCE Subjective - Subjective Patient Reports: Other (Alert. Following commands. Continues to require oxygen. Denies chest pain, shortness of breath, abdominal pain.) Objective Vital Signs: Vital Signs - 24 hr 05/09/23 05/09/23 05/09/23 22:52 22:53 23:32 Temperature 37.1 C Heart Rate 69 Heart Rate [ Brachial] Heart Rate [ 98 Monitoring electrodes] Heart Rate [ Sitting] Heart Rate [ Standing] Heart Rate [ Supine] Respiratory 17 22 Rate Blood Pressure 178/93 H [Right Brachial artery] Blood Pressure [Sitting] Blood Pressure [Standing] Blood Pressure [Supine] O2 Saturation 95 If not protocol 6 6 6 : Oxygen Flow, liters/minute 05/10/23 05/10/23 05/10/23 06:15 07:35 08:00 Temperature 36.7 C Heart Rate 89 Heart Rate [ 92 Brachial] Heart Rate [ Monitoring electrodes] Heart Rate [ Sitting] Heart Rate [ Standing] Heart Rate [ Supine] Respiratory 18 18 Rate Blood Pressure 137/65 H [Right Brachial artery] Blood Pressure [Sitting] Blood Pressure [Standing] Blood Pressure [Supine] O2 Saturation 91 L If not protocol 6 6 6 : Oxygen Flow, liters/minute 05/10/23 05/10/23 05/10/23 10:03 12:43 15:37 Temperature 36.7 C Heart Rate Heart Rate [ 60 Brachial] Heart Rate [ Monitoring electrodes] Heart Rate [ 73 73 Sitting] Heart Rate [ 72 72 Standing] Heart Rate [ 77 77 Supine] Respiratory 18 Rate Blood Pressure 133/73 H [Right Brachial artery] Blood Pressure 135/73 H 135/73 H [Sitting] Blood Pressure 137/51 H 137/51 H [Standing] Blood Pressure 121/70 121/70 [Supine] O2 Saturation 95 If not protocol 2 : Oxygen Flow, liters/minute 05/10/23 05/10/23 15:49 19:47 Temperature Heart Rate Heart Rate [ Brachial] Heart Rate [ Monitoring electrodes] Heart Rate [ Sitting] Heart Rate [ Standing] Heart Rate [ Supine] Respiratory Rate Blood Pressure [Right Brachial artery] Blood Pressure [Sitting] Blood Pressure [Standing] Blood Pressure [Supine] O2 Saturation 92 If not protocol 2 1.5 : Oxygen Flow, liters/minute Oxygen O2 Source Nasal cannula Oxygen Flow Rate 6 I&O (Last 24 Hrs): Intake and Output Totals x24h 05/08/23 05/09/23 05/10/23 23:59 23:59 23:59 Intake Total 145.553 2331.667 Output Total 480 Balance 530.147 9820.667 General: Alert, No acute distress HEENT: Atraumatic Neck: No JVD, No thyromegaly Neuro: Alert, Non Focal Cardiovascular: Other (Positive S1-S2 no extra heart sounds.) Respiratory: Other (Good air exchange in all lung floyd no wheezing no crackles) Abdomen: Other (Soft nontender. Positive bowel sounds) Skin: No rashes - Results Results: Laboratory Results WBC 11.8 x10^3/uL (4.8-10.8) H 05/09/23 16:04 RBC 4.91 10^6/uL (4.20-5.40) 05/09/23 16:04 Hgb 11.3 g/dL (12.0-16.0) L 05/09/23 16:04 Hct 42.5 % (37.0-47.0) 05/09/23 16:04 MCV 86.6 fL (81.0-99.0) 05/09/23 16:04 MCH 23.0 pg (27.0-31.0) L 05/09/23 16:04 MCHC 26.6 g/dL (32.0-36.0) L 05/09/23 16:04 RDW 16.3 % (12.0-15.0) H 05/09/23 16:04 Plt Count 424 10^3/uL (130-450) 05/09/23 16:04 MPV 9.7 fL (7.9-10.8) 05/09/23 16:04 Neut # (Auto) 10.0 10^3/uL (1.5-6.6) H 05/09/23 16:04 Lymph # (Auto) 1.2 10^3/uL (1.5-3.5) L 05/09/23 16:04 [place] # (Auto) 0.5 10^3/uL (0.0-1.0) 05/09/23 16:04 Eos # (Auto) 0.0 10^3/uL (0.0-0.7) 05/09/23 16:04 Baso # (Auto) 0.1 10^3/uL (0.0-0.1) 05/09/23 16:04 Absolute Nucleated RBC 0.00 x10^3/uL 05/09/23 16:04 Nucleated RBC % 0.0 /100WBC 05/09/23 16:04 Manual Slide Review Indicated 05/09/23 16:04 Platelet Estimate NORMAL (130-450,000) (NORMAL) 05/09/23 16:04 Platelet Morphology NORMAL APPEARANCE (NORMAL) 05/09/23 16:04 RBC Morph Micro Appear 1+ ANISOCYTOSIS (NORMAL) 1+ MICROCYTOSIS (NORMAL) 1+ HYPOCHROMASIA (NORMAL) 05/09/23 16:04 RBC Morph Micro Appear 1+ ANISOCYTOSIS (NORMAL) 1+ MICROCYTOSIS (NORMAL) 1+ HYPOCHROMASIA (NORMAL) 05/09/23 16:04 RBC Morph Micro Appear 1+ ANISOCYTOSIS (NORMAL) 1+ MICROCYTOSIS (NORMAL) 1+ HYPOCHROMASIA (NORMAL) 05/09/23 16:04 D-Dimer < 200.0 ng/mL (200.0-255.0) L 05/09/23 18:11 Bld Gas Analysis Time 18305/09/23 18:27 Sample Site RIGHT RADIAL 05/09/23 18:27 ABG pH 7.32 (7.35-7.45) L 05/09/23 18:27 ABG pCO2 62 mmHg (34-45) H* 05/09/23 18:27 ABG pO2 71 mmHg (80-100) L 05/09/23 18:27 ABG HCO3 31.4 mmol/L (22.0-26.0) H 05/09/23 18:27 ABG Total CO2 33.3 MMOL/L (21.0-29.0) H 05/09/23 18:27 ABG O2 Saturation 92 % (94-98) L 05/09/23 18:27 ABG Base Excess 3.8 mmol/L (-2.0-3.0) H 05/09/23 18:27 Antonio Test POSITIVE 05/09/23 18:27 O2 Delivery Device NASAL CANNULA 05/09/23 18:27 O2 Liters/Min 6.00 LPM 05/09/23 18:27 Sodium 141 mmol/L (135-145) 05/09/23 16:04 Potassium 4.5 mmol/L (3.5-4.5) 05/09/23 16:04 Chloride 100 mmol/L (101-111) L 05/09/23 16:04 Carbon Dioxide 38 mmol/L (21-32) H 05/09/23 16:04 Anion Gap 3.0 (6-13) L 05/09/23 16:04 BUN 16 mg/dL (6-20) 05/09/23 16:04 Creatinine 0.6 mg/dL (0.6-1.3) 05/09/23 16:04 Estimated GFR (MDRD) 102 (>89) 05/09/23 16:04 Glucose 81 mg/dL (74-104) 05/09/23 16:04 POC Whole Bld Glucose 197 mg/dL (70 - 100) H 05/10/23 20:36 Estimat Average Glucose 134 mg/dL (70-100) H 05/10/23 05:17 Hemoglobin A1c % 6.3 % (4.27-6.07) H 05/10/23 05:17 Calcium 9.7 mg/dL (8.5-10.3) 05/09/23 16:04 Magnesium 1.8 mg/dL (1.7-2.3) 05/09/23 16:04 Total Bilirubin 0.6 mg/dL (0.2-1.0) 05/09/23 16:04 AST 20 IU/L (10-42) 05/09/23 16:04 ALT 22 IU/L (10-60) 05/09/23 16:04 Alkaline Phosphatase 56 IU/L (42-121) 05/09/23 16:04 B-Natriuretic Peptide 188 pg/mL (5-100) H 05/10/23 09:06 Total Protein 7.8 g/dL (6.4-8.9) 05/09/23 16:04 Albumin 3.9 g/dL (3.2-5.5) 05/09/23 16:04 Globulin 3.9 g/dL (2.1-4.2) 05/09/23 16:04 Albumin/Globulin Ratio 1.0 (1.0-2.2) 05/09/23 16:04 Lipase 34 U/L (11-82) 05/09/23 16:04 Nasal Adenovirus (PCR) NOT DETECTED 05/09/23 15:55 Nasal B. parapertussis DNA (PCR) NOT DETECTED 05/09/23 15:55 Nasal Coronavir 229E PCR NOT DETECTED 05/09/23 15:55 Nasal Coronavir HKU1 PCR NOT DETECTED 05/09/23 15:55 Nasal Coronavir NL63 PCR NOT DETECTED 05/09/23 15:55 Nasal Coronavir OC43 PCR NOT DETECTED 05/09/23 15:55 Nasal Enterovir/Rhinovir PCR NOT DETECTED 05/09/23 15:55 Nasal Influenza B PCR NOT DETECTED 05/09/23 15:55 Nasal Influenza A PCR NOT DETECTED 05/09/23 15:55 Nasal Parainfluen 1 PCR NOT DETECTED 05/09/23 15:55 Nasal Parainfluen 2 PCR NOT DETECTED 05/09/23 15:55 Nasal Parainfluen 3 PCR NOT DETECTED 05/09/23 15:55 Nasal Parainfluen 4 PCR NOT DETECTED 05/09/23 15:55 Nasal RSV (PCR) NOT DETECTED 05/09/23 15:55 Nasal B.pertussis DNA PCR NOT DETECTED 05/09/23 15:55 Nasal C.pneumoniae (PCR) NOT DETECTED 05/09/23 15:55 Lucho Human Metapneumo PCR NOT DETECTED 05/09/23 15:55 Nasal M.pneumoniae (PCR) NOT DETECTED 05/09/23 15:55 Nasal SARS-CoV-2 (PCR) NOT DETECTED 05/09/23 15:55 Sepsis Event Note (H) - Evaluation Current Stage of Sepsis: Ruled out
[2023-05-11 01:46] LABS: ABG PH 7.28 (7.35-7.45)
[2023-05-11 01:47] LABS: ABG BASE EXCESS 6.7 mmol/L (-2.0-3.0); ABG HCO3 35.7 mmol/L (22.0-26.0); ABG OXYGEN SATURATION 92 % (94-98); ABG PO2 69 mmHg (80-100); ABG TCO2 38.1 MMOL/L (21.0-29.0); ALLEN TEST POSITIVE
[2023-05-11 01:49] LABS: ABG PCO2 72 mmHg (34-45)
[2023-05-11 06:19] LABS: ABG HCO3 36.9 mmol/L (22.0-26.0); ABG OXYGEN SATURATION 93 % (94-98); ABG PH 7.25 (7.35-7.45); ABG PO2 75 mmHg (80-100)
[2023-05-11 06:22] LABS: ABG PCO2 87 mmHg (34-45); ABG RESPIRATORY RATE 12 b/min; ABG TCO2 39.6 MMOL/L (21.0-29.0); ALLEN TEST POSITIVE
--- NOTE | 2023-05-11 21:00 | PROVIDER PROGRESS NOTE ---
Assessment/Plan - Problem List (1) Hypoxia Assessment/Plan: Etiology of hypoxemia is not clear. Differential diagnosis would include cardiac dysfunction. Most likely etiology is obesity hypoventilation syndrome. Recommend patient undergo an ABG in the morning. Continue to wean oxygen as tolerated. (2) JOSUE (obstructive sleep apnea) Conclusion/Plan: She reports a prior diagnosis of obstructive sleep apnea. She reports she lost a considerable amount of weight but unfortunately has gained the weight back and feels she most likely has obstructive sleep apnea again. She has been scheduled for a home sleep study, however, a home sleep study will not be helpful when the patient is on oxygen. Plan is to arrange for an inpatient sleep study if possible. (3) Morbid (severe) obesity with alveolar hypoventilation Conclusion/Plan: Patient will have to qualify for a positive airway pressure device and will require a morning arterial blood gas.The arterial blood gases been ordered for the morning. I discussed her case today with FLAKITA Clarke from the sleep facility in [facility] and they plan to attempt to arrange for an in lab sleep study. (4) Type 2 diabetes mellitus Conclusion/Plan: Hemoglobin A1c is 6.3. (5) Hypertension Conclusion/Plan: Continue, hydrochlorothiazide, diltiazem and losartan. (6) Paroxysmal atrial fibrillation Conclusion/Plan: --Diagnosed with atrial fibrillation in late 2022. She follows with cardiology at [facility] and has undergone a stress test and TTE. --Continue diltiazem and Eliquis. - Current Meds Current Meds: Current Medications Generic Name Dose Route Start Last Admin Trade Name Freq PRN Reason Stop Dose Admin Apixaban 5 mg 05/09/23 21:00 05/11/23 20:08 Apixaban 5 Mg Tablet PO 5 mg BID FIORELLA Administration Diltiazem HCl 180 mg 05/10/23 09:00 05/11/23 09:07 Diltiazem Cd 180 Mg Capsule PO 180 mg DAILY FIORELLA Administration Doxycycline Hyclate 100 mg 05/09/23 21:00 05/11/23 20:09 Doxycycline 100 Mg Tablet PO 05/12/23 20:59 100 mg BID FIORELLA Administration Hydrochlorothiazide 25 mg 05/10/23 09:00 05/11/23 09:07 Hydrochlorothiazide 25 Mg Tablet PO 25 mg DAILY FIORELLA Administration Insulin Glargine-yfgn 20 unit 05/09/23 21:00 05/11/23 20:10 Insulin Glargine-Yfgn 300 Unit/3 Ml Pen SUBQ 20 unit QPM FIORELLA Administration Insulin Human Lispro 5 unit 05/10/23 08:00 05/11/23 17:10 Insulin Lispro 300 Unit/3 Ml Pen SUBQ 5 unit TIDWM [facility] Administration Protocol Insulin Human Lispro 3 - 11 unit 05/09/23 21:00 05/11/23 20:09 Insulin Lispro 300 Unit/3 Ml Pen SUBQ 5 unit 0800,1200,1700,2100 [facility] Administration Protocol Lisinopril 40 mg 05/10/23 09:00 05/11/23 09:09 Lisinopril 20 Mg Tablet PO Not Given DAILY [facility] Sodium Chloride 10 ml 05/10/23 01:00 05/11/23 20:17 Sodium Chloride Flush 0.9% 10 Ml Syringe IVP 10 ml 0100,0900,1700 [facility] Administration - Lab Result Fish Bone Diagrams: 05/09/23 16:04 05/09/23 16:04 Subjective - Subjective Patient Reports: Other (Alert. Denies chest pain, shortness of breath and abdominal pain. No other complaints at this time. Patient is alert and oriented to person time place and situation.) Objective Vital Signs: Vital Signs - 24 hr 05/10/23 05/11/23 05/11/23 23:33 03:05 03:15 Temperature 37.1 C 36.9 C Heart Rate 60 Heart Rate [ 60 Brachial] Heart Rate [ 67 58 L Monitoring electrodes] Respiratory 18 23 17 Rate Blood Pressure 135/73 H 130/77 132/70 H [Right Brachial artery] O2 Saturation 92 100 If not protocol 3 3 : Oxygen Flow, liters/minute 05/11/23 05/11/23 05/11/23 04:00 05:00 05:03 Temperature Heart Rate 16 L Heart Rate [ Brachial] Heart Rate [ 57 L 56 L Monitoring electrodes] Respiratory 16 15 Rate Blood Pressure 122/75 123/65 [Right Brachial artery] O2 Saturation 94 93 If not protocol : Oxygen Flow, liters/minute 05/11/23 05/11/23 05/11/23 06:00 07:00 07:07 Temperature Heart Rate 54 L Heart Rate [ Brachial] Heart Rate [ 57 L 54 L Monitoring electrodes] Respiratory 14 15 Rate Blood Pressure 130/70 104/65 [Right Brachial artery] O2 Saturation 96 94 If not protocol : Oxygen Flow, liters/minute 05/11/23 05/11/23 05/11/23 08:00 09:00 10:07 Temperature 36.8 C Heart Rate Heart Rate [ Brachial] Heart Rate [ 53 L 63 62 Monitoring electrodes] Respiratory 15 18 23 Rate Blood Pressure 116/63 103/59 L 120/57 L [Right Brachial artery] O2 Saturation 95 99 90 L If not protocol 3 3 : Oxygen Flow, liters/minute 05/11/23 05/11/23 05/11/23 11:00 13:00 13:29 Temperature 36.8 C Heart Rate Heart Rate [ Brachial] Heart Rate [ 64 Monitoring electrodes] Respiratory 19 Rate Blood Pressure 131/70 H [Right Brachial artery] O2 Saturation 96 If not protocol 3 3 3 : Oxygen Flow, liters/minute 05/11/23 05/11/23 05/11/23 15:00 16:00 17:00 Temperature 37.0 C Heart Rate Heart Rate [ Brachial] Heart Rate [ 60 Monitoring electrodes] Respiratory 20 Rate Blood Pressure 143/80 H [Right Brachial artery] O2 Saturation 99 If not protocol 3 2 2 : Oxygen Flow, liters/minute 05/11/23 05/11/23 19:00 20:00 Temperature 37.1 C Heart Rate Heart Rate [ Brachial] Heart Rate [ 72 Monitoring electrodes] Respiratory 23 Rate Blood Pressure 157/74 H [Right Brachial artery] O2 Saturation 95 If not protocol 2 2 : Oxygen Flow, liters/minute Oxygen O2 Source Nasal cannula Oxygen Flow Rate 6 I&O (Last 24 Hrs): Intake and Output Totals x24h 05/09/23 05/10/23 05/11/23 23:59 23:59 23:59 Intake Total 866.932 9410.667 1030 Output Total 480 850 Balance 360.168 6821.667 180 General: Alert, Oriented x3, No acute distress HEENT: Atraumatic Neck: No JVD Neuro: Alert, Non Focal Cardiovascular: Other (Positive S1-S2 no extra heart sounds) Respiratory: Other (Good air exchange in all lung floyd no wheezing no crackles.) Abdomen: Normal bowel sounds Extremities: No cyanosis, No edema Skin: No rashes - Results Results: Laboratory Results WBC 11.8 x10^3/uL (4.8-10.8) H 05/09/23 16:04 RBC 4.91 10^6/uL (4.20-5.40) 05/09/23 16:04 Hgb 11.3 g/dL (12.0-16.0) L 05/09/23 16:04 Hct 42.5 % (37.0-47.0) 05/09/23 16:04 MCV 86.6 fL (81.0-99.0) 05/09/23 16:04 MCH 23.0 pg (27.0-31.0) L 05/09/23 16:04 MCHC 26.6 g/dL (32.0-36.0) L 05/09/23 16:04 RDW 16.3 % (12.0-15.0) H 05/09/23 16:04 Plt Count 424 10^3/uL (130-450) 05/09/23 16:04 MPV 9.7 fL (7.9-10.8) 05/09/23 16:04 Neut # (Auto) 10.0 10^3/uL (1.5-6.6) H 05/09/23 16:04 Lymph # (Auto) 1.2 10^3/uL (1.5-3.5) L 05/09/23 16:04 Tyrrell # (Auto) 0.5 10^3/uL (0.0-1.0) 05/09/23 16:04 Eos # (Auto) 0.0 10^3/uL (0.0-0.7) 05/09/23 16:04 Baso # (Auto) 0.1 10^3/uL (0.0-0.1) 05/09/23 16:04 Absolute Nucleated RBC 0.00 x10^3/uL 05/09/23 16:04 Nucleated RBC % 0.0 /100WBC 05/09/23 16:04 Manual Slide Review Indicated 05/09/23 16:04 Platelet Estimate NORMAL (130-450,000) (NORMAL) 05/09/23 16:04 Platelet Morphology NORMAL APPEARANCE (NORMAL) 05/09/23 16:04 RBC Morph Micro Appear 1+ ANISOCYTOSIS (NORMAL) 1+ MICROCYTOSIS (NORMAL) 1+ HYPOCHROMASIA (NORMAL) 05/09/23 16:04 RBC Morph Micro Appear 1+ ANISOCYTOSIS (NORMAL) 1+ MICROCYTOSIS (NORMAL) 1+ HYPOCHROMASIA (NORMAL) 05/09/23 16:04 RBC Morph Micro Appear 1+ ANISOCYTOSIS (NORMAL) 1+ MICROCYTOSIS (NORMAL) 1+ HYPOCHROMASIA (NORMAL) 05/09/23 16:04 D-Dimer < 200.0 ng/mL (200.0-255.0) L 05/09/23 18:11 Bld Gas Analysis Time 0614 05/11/23 06:10 Sample Site RIGHT RADIAL 05/11/23 06:10 ABG pH 7.25 (7.35-7.45) L 05/11/23 06:10 ABG pCO2 87 mmHg (34-45) H* 05/11/23 06:10 ABG pO2 75 mmHg (80-100) L 05/11/23 06:10 ABG HCO3 36.9 mmol/L (22.0-26.0) H 05/11/23 06:10 ABG Total CO2 39.6 MMOL/L (21.0-29.0) H* 05/11/23 06:10 ABG O2 Saturation 93 % (94-98) L 05/11/23 06:10 ABG Base Excess 7.0 mmol/L (-2.0-3.0) H 05/11/23 06:10 Antonio Test POSITIVE 05/11/23 06:10 Respiration Rate 12 b/min 05/11/23 06:10 Room Air YES 05/11/23 01:30 O2 Delivery Device BiPAP 05/11/23 06:10 O2 Liters/Min 6.00 LPM 05/09/23 18:27 FiO2 35.00 05/11/23 06:10 EPAP 5 cmH2O 05/11/23 06:10 IPAP 10 cmH2O 05/11/23 06:10 Sodium 141 mmol/L (135-145) 05/09/23 16:04 Potassium 4.5 mmol/L (3.5-4.5) 05/09/23 16:04 Chloride 100 mmol/L (101-111) L 05/09/23 16:04 Carbon Dioxide 38 mmol/L (21-32) H 05/09/23 16:04 Anion Gap 3.0 (6-13) L 05/09/23 16:04 BUN 16 mg/dL (6-20) 05/09/23 16:04 Creatinine 0.6 mg/dL (0.6-1.3) 05/09/23 16:04 Estimated GFR (MDRD) 102 (>89) 05/09/23 16:04 Glucose 81 mg/dL (74-104) 05/09/23 16:04 POC Whole Bld Glucose 201 mg/dL (70 - 100) H 05/11/23 20:04 Estimat Average Glucose 134 mg/dL (70-100) H 05/10/23 05:17 Hemoglobin A1c % 6.3 % (4.27-6.07) H 05/10/23 05:17 Calcium 9.7 mg/dL (8.5-10.3) 05/09/23 16:04 Magnesium 1.8 mg/dL (1.7-2.3) 05/09/23 16:04 Total Bilirubin 0.6 mg/dL (0.2-1.0) 05/09/23 16:04 AST 20 IU/L (10-42) 05/09/23 16:04 ALT 22 IU/L (10-60) 05/09/23 16:04 Alkaline Phosphatase 56 IU/L (42-121) 05/09/23 16:04 B-Natriuretic Peptide 188 pg/mL (5-100) H 05/10/23 09:06 Total Protein 7.8 g/dL (6.4-8.9) 05/09/23 16:04 Albumin 3.9 g/dL (3.2-5.5) 05/09/23 16:04 Globulin 3.9 g/dL (2.1-4.2) 05/09/23 16:04 Albumin/Globulin Ratio 1.0 (1.0-2.2) 05/09/23 16:04 Lipase 34 U/L (11-82) 05/09/23 16:04 Nasal Adenovirus (PCR) NOT DETECTED 05/09/23 15:55 Nasal B. parapertussis DNA (PCR) NOT DETECTED 05/09/23 15:55 Nasal Coronavir 229E PCR NOT DETECTED 05/09/23 15:55 Nasal Coronavir HKU1 PCR NOT DETECTED 05/09/23 15:55 Nasal Coronavir NL63 PCR NOT DETECTED 05/09/23 15:55 Nasal Coronavir OC43 PCR NOT DETECTED 05/09/23 15:55 Nasal Enterovir/Rhinovir PCR NOT DETECTED 05/09/23 15:55 Nasal Influenza B PCR NOT DETECTED 05/09/23 15:55 Nasal Influenza A PCR NOT DETECTED 05/09/23 15:55 Nasal Parainfluen 1 PCR NOT DETECTED 05/09/23 15:55 Nasal Parainfluen 2 PCR NOT DETECTED 05/09/23 15:55 Nasal Parainfluen 3 PCR NOT DETECTED 05/09/23 15:55 Nasal Parainfluen 4 PCR NOT DETECTED 05/09/23 15:55 Nasal RSV (PCR) NOT DETECTED 05/09/23 15:55 Nasal Screen MRSA (PCR) NEGATIVE (NEGATIVE) 05/11/23 03:03 Nasal B.pertussis DNA PCR NOT DETECTED 05/09/23 15:55 Nasal C.pneumoniae (PCR) NOT DETECTED 05/09/23 15:55 Lucho Human Metapneumo PCR NOT DETECTED 05/09/23 15:55 Nasal M.pneumoniae (PCR) NOT DETECTED 05/09/23 15:55 Nasal SARS-CoV-2 (PCR) NOT DETECTED 05/09/23 15:55 Sepsis Event Note (H) - Evaluation Current Stage of Sepsis: Ruled out
[2023-05-12 08:57] LABS: ABG PH 7.37 (7.35-7.45)
[2023-05-12 08:58] LABS: ABG BASE EXCESS 12.8 mmol/L (-2.0-3.0); ABG HCO3 41.2 mmol/L (22.0-26.0); ALLEN TEST POSITIVE
[2023-05-12 09:01] LABS: ABG OXYGEN SATURATION 68 % (94-98); ABG PCO2 73 mmHg (34-45); ABG PO2 36 mmHg (80-100); ABG TCO2 43.4 MMOL/L (21.0-29.0)
--- NOTE | 2023-05-12 22:20 | PROVIDER PROGRESS NOTE ---
Assessment/Plan - Problem List (1) Hypoxia Assessment/Plan: Etiology of hypoxemia is not clear. Differential diagnosis would include cardiac dysfunction. Most likely etiology is obesity hypoventilation syndrome. Arterial blood gas performed this morning revealed a pH of 7.37, a pCO2 of 73, a bicarbonate of 36.. Blood gas would be consistent with obesity hypoventilation syndrome. Continue to wean oxygen as tolerated. Patient would benefit from being discharged on a positive airway pressure device if possible. We are working with local [employer] companies to determine if she would qualify for a machine prior to discharge. Appreciate respiratory therapy assistance. (2) JOSUE (obstructive sleep apnea) Conclusion/Plan: She reports a prior diagnosis of obstructive sleep apnea. She reports she lost a considerable amount of weight but unfortunately has gained the weight back and feels she most likely has obstructive sleep apnea again. She has been scheduled for a home sleep study, however, a home sleep study will not be helpful when the patient is on oxygen. Plan is to arrange for any in lab study. Apparently the patient has been approved for an in lab study. (3) Morbid (severe) obesity with alveolar hypoventilation Conclusion/Plan: Patient will have to qualify for a positive airway pressure device and will require a morning arterial blood gas.The arterial blood gases been ordered for the morning. I discussed her case today with FLAKITA Clarke from the sleep facility in [facility] and patient has been approved for an in lab study - Current Meds Current Meds: Current Medications Generic Name Dose Route Start Last Admin Trade Name Freq PRN Reason Stop Dose Admin Apixaban 5 mg 05/09/23 21:00 05/12/23 20:51 Apixaban 5 Mg Tablet PO 5 mg BID FIORELLA Administration Diltiazem HCl 180 mg 05/10/23 09:00 05/12/23 07:59 Diltiazem Cd 180 Mg Capsule PO 180 mg DAILY FIORELLA Administration Hydrochlorothiazide 25 mg 05/10/23 09:00 05/12/23 08:00 Hydrochlorothiazide 25 Mg Tablet PO 25 mg DAILY FIORELLA Administration Insulin Glargine-yfgn 20 unit 05/09/23 21:00 05/12/23 20:49 Insulin Glargine-Yfgn 300 Unit/3 Ml Pen SUBQ 20 unit QPM FIORELLA Administration Insulin Human Lispro 5 unit 05/10/23 08:00 05/12/23 17:00 Insulin Lispro 300 Unit/3 Ml Pen SUBQ 5 unit TIDWM [facility] Administration Protocol Insulin Human Lispro 3 - 11 unit 05/09/23 21:00 05/12/23 20:49 Insulin Lispro 300 Unit/3 Ml Pen SUBQ 9 unit 0800,1200,1700,2100 [facility] Administration Protocol Lisinopril 40 mg 05/10/23 09:00 05/12/23 07:59 Lisinopril 20 Mg Tablet PO 40 mg DAILY FIORELLA Administration Sodium Chloride 10 ml 05/10/23 01:00 05/12/23 17:01 Sodium Chloride Flush 0.9% 10 Ml Syringe IVP 10 ml 0100,0900,1700 [facility] Administration - Lab Result Fish Bone Diagrams: 05/09/23 16:04 05/09/23 16:04 - Additional Planning My Orders: My Active Orders 05/12/23 08:30 RT - Obtain Arterial Specimen [RC] .ONCE Subjective - Subjective Patient Reports: Other (Alert. Denies chest pain, shortness of breath and abdominal pain. No other complaints at this time.) Objective Vital Signs: Vital Signs - 24 hr 05/11/23 05/12/23 05/12/23 23:00 00:00 01:00 Temperature 37.1 C Heart Rate [ 70 Monitoring electrodes] Respiratory 17 Rate Blood Pressure 137/65 H [Right Brachial artery] O2 Saturation 97 If not protocol 2 2 2 : Oxygen Flow, liters/minute 05/12/23 05/12/23 05/12/23 03:00 03:53 06:54 Temperature 37.1 C Heart Rate [ 63 Monitoring electrodes] Respiratory 20 Rate Blood Pressure 138/64 H [Right Brachial artery] O2 Saturation 94 If not protocol 2 2 2 : Oxygen Flow, liters/minute 05/12/23 05/12/23 05/12/23 07:52 11:35 13:00 Temperature 36.5 C 36.9 C Heart Rate [ 68 76 Monitoring electrodes] Respiratory 21 22 Rate Blood Pressure 172/57 H 142/71 H [Right Brachial artery] O2 Saturation 95 95 If not protocol 2 3 2 : Oxygen Flow, liters/minute 05/12/23 05/12/23 05/12/23 16:00 17:00 18:16 Temperature 37.2 C Heart Rate [ 73 Monitoring electrodes] Respiratory 23 Rate Blood Pressure 156/68 H [Right Brachial artery] O2 Saturation 2 L If not protocol 2 2 : Oxygen Flow, liters/minute Oxygen O2 Source Nasal cannula Oxygen Flow Rate 6 I&O (Last 24 Hrs): Intake and Output Totals x24h 05/10/23 05/11/23 05/12/23 23:59 23:59 23:59 Intake Total 3196.667 1030 1630 Output Total 480 1100 350 Balance 2716.667 -70 1280 General: Alert, Oriented x3, No acute distress Neck: No JVD Neuro: Alert, Non Focal Cardiovascular: Other (Positive S1-S2 no extra heart sounds.) Respiratory: Other (Fair air exchange in all lung floyd no wheezing no crackles.) Abdomen: Other (Soft, nontender nondistended positive bowel sounds) Extremities: No cyanosis, No edema Skin: No rashes - Results Results: Laboratory Results WBC 11.8 x10^3/uL (4.8-10.8) H 05/09/23 16:04 RBC 4.91 10^6/uL (4.20-5.40) 05/09/23 16:04 Hgb 11.3 g/dL (12.0-16.0) L 05/09/23 16:04 Hct 42.5 % (37.0-47.0) 05/09/23 16:04 MCV 86.6 fL (81.0-99.0) 05/09/23 16:04 MCH 23.0 pg (27.0-31.0) L 05/09/23 16:04 MCHC 26.6 g/dL (32.0-36.0) L 05/09/23 16:04 RDW 16.3 % (12.0-15.0) H 05/09/23 16:04 Plt Count 424 10^3/uL (130-450) 05/09/23 16:04 MPV 9.7 fL (7.9-10.8) 05/09/23 16:04 Neut # (Auto) 10.0 10^3/uL (1.5-6.6) H 05/09/23 16:04 Lymph # (Auto) 1.2 10^3/uL (1.5-3.5) L 05/09/23 16:04 Beckham # (Auto) 0.5 10^3/uL (0.0-1.0) 05/09/23 16:04 Eos # (Auto) 0.0 10^3/uL (0.0-0.7) 05/09/23 16:04 Baso # (Auto) 0.1 10^3/uL (0.0-0.1) 05/09/23 16:04 Absolute Nucleated RBC 0.00 x10^3/uL 05/09/23 16:04 Nucleated RBC % 0.0 /100WBC 05/09/23 16:04 Manual Slide Review Indicated 05/09/23 16:04 Platelet Estimate NORMAL (130-450,000) (NORMAL) 05/09/23 16:04 Platelet Morphology NORMAL APPEARANCE (NORMAL) 05/09/23 16:04 RBC Morph Micro Appear 1+ ANISOCYTOSIS (NORMAL) 1+ MICROCYTOSIS (NORMAL) 1+ HYPOCHROMASIA (NORMAL) 05/09/23 16:04 RBC Morph Micro Appear 1+ ANISOCYTOSIS (NORMAL) 1+ MICROCYTOSIS (NORMAL) 1+ HYPOCHROMASIA (NORMAL) 05/09/23 16:04 RBC Morph Micro Appear 1+ ANISOCYTOSIS (NORMAL) 1+ MICROCYTOSIS (NORMAL) 1+ HYPOCHROMASIA (NORMAL) 05/09/23 16:04 D-Dimer < 200.0 ng/mL (200.0-255.0) L 05/09/23 18:11 Bld Gas Analysis Time 0852 05/12/23 08:42 Sample Site LEFT RADIAL 05/12/23 08:42 ABG pH 7.37 (7.35-7.45) 05/12/23 08:42 ABG pCO2 73 mmHg (34-45) H* 05/12/23 08:42 ABG pO2 36 mmHg (80-100) L* 05/12/23 08:42 ABG HCO3 41.2 mmol/L (22.0-26.0) H 05/12/23 08:42 ABG Total CO2 43.4 MMOL/L (21.0-29.0) H* 05/12/23 08:42 ABG O2 Saturation 68 % (94-98) L* 05/12/23 08:42 ABG Base Excess 12.8 mmol/L (-2.0-3.0) H 05/12/23 08:42 Antonio Test POSITIVE 05/12/23 08:42 Respiration Rate 12 b/min 05/11/23 06:10 Room Air YES 05/11/23 01:30 O2 Delivery Device BiPAP 05/11/23 06:10 O2 Liters/Min 6.00 LPM 05/09/23 18:27 FiO2 35.00 05/11/23 06:10 EPAP 5 cmH2O 05/11/23 06:10 IPAP 10 cmH2O 05/11/23 06:10 Sodium 141 mmol/L (135-145) 05/09/23 16:04 Potassium 4.5 mmol/L (3.5-4.5) 05/09/23 16:04 Chloride 100 mmol/L (101-111) L 05/09/23 16:04 Carbon Dioxide 38 mmol/L (21-32) H 05/09/23 16:04 Anion Gap 3.0 (6-13) L 05/09/23 16:04 BUN 16 mg/dL (6-20) 05/09/23 16:04 Creatinine 0.6 mg/dL (0.6-1.3) 05/09/23 16:04 Estimated GFR (MDRD) 102 (>89) 05/09/23 16:04 Glucose 81 mg/dL (74-104) 05/09/23 16:04 POC Whole Bld Glucose 284 mg/dL (70 - 100) H 05/12/23 20:26 Estimat Average Glucose 134 mg/dL (70-100) H 05/10/23 05:17 Hemoglobin A1c % 6.3 % (4.27-6.07) H 05/10/23 05:17 Calcium 9.7 mg/dL (8.5-10.3) 05/09/23 16:04 Magnesium 1.8 mg/dL (1.7-2.3) 05/09/23 16:04 Total Bilirubin 0.6 mg/dL (0.2-1.0) 05/09/23 16:04 AST 20 IU/L (10-42) 05/09/23 16:04 ALT 22 IU/L (10-60) 05/09/23 16:04 Alkaline Phosphatase 56 IU/L (42-121) 05/09/23 16:04 B-Natriuretic Peptide 188 pg/mL (5-100) H 05/10/23 09:06 Total Protein 7.8 g/dL (6.4-8.9) 05/09/23 16:04 Albumin 3.9 g/dL (3.2-5.5) 05/09/23 16:04 Globulin 3.9 g/dL (2.1-4.2) 05/09/23 16:04 Albumin/Globulin Ratio 1.0 (1.0-2.2) 05/09/23 16:04 Lipase 34 U/L (11-82) 05/09/23 16:04 Nasal Adenovirus (PCR) NOT DETECTED 05/09/23 15:55 Nasal B. parapertussis DNA (PCR) NOT DETECTED 05/09/23 15:55 Nasal Coronavir 229E PCR NOT DETECTED 05/09/23 15:55 Nasal Coronavir HKU1 PCR NOT DETECTED 05/09/23 15:55 Nasal Coronavir NL63 PCR NOT DETECTED 05/09/23 15:55 Nasal Coronavir OC43 PCR NOT DETECTED 05/09/23 15:55 Nasal Enterovir/Rhinovir PCR NOT DETECTED 05/09/23 15:55 Nasal Influenza B PCR NOT DETECTED 05/09/23 15:55 Nasal Influenza A PCR NOT DETECTED 05/09/23 15:55 Nasal Parainfluen 1 PCR NOT DETECTED 05/09/23 15:55 Nasal Parainfluen 2 PCR NOT DETECTED 05/09/23 15:55 Nasal Parainfluen 3 PCR NOT DETECTED 05/09/23 15:55 Nasal Parainfluen 4 PCR NOT DETECTED 05/09/23 15:55 Nasal RSV (PCR) NOT DETECTED 05/09/23 15:55 Nasal Screen MRSA (PCR) NEGATIVE (NEGATIVE) 05/11/23 03:03 Nasal B.pertussis DNA PCR NOT DETECTED 05/09/23 15:55 Nasal C.pneumoniae (PCR) NOT DETECTED 05/09/23 15:55 Lucho Human Metapneumo PCR NOT DETECTED 05/09/23 15:55 Nasal M.pneumoniae (PCR) NOT DETECTED 05/09/23 15:55 Nasal SARS-CoV-2 (PCR) NOT DETECTED 05/09/23 15:55 Sepsis Event Note (H) - Evaluation Current Stage of Sepsis: Ruled out
[2023-05-13 08:18] LABS: MAGNESIUM 1.7 mg/dL (1.7-2.3); PHOSPHORUS 3.9 mg/dL (2.5-5.0)
[2023-05-13 08:22] LABS: BUN - BLOOD UREA NITROGEN 15 mg/dL (6-20); CARBON DIOXIDE - CO2 > 45 mmol/L (21-32); CHLORIDE 88 mmol/L (101-111); CREATININE 0.6 mg/dL (0.6-1.3); GFR - MDRD 102 (>89); GLUCOSE 159 mg/dL (74-104); POTASSIUM 4.2 mmol/L (3.5-4.5); SODIUM 140 mmol/L (135-145)
--- NOTE | 2023-05-13 21:10 | PROVIDER PROGRESS NOTE ---
Assessment/Plan - Problem List (1) Hypoxia Assessment/Plan: Pulmonary function test were performed today which revealed an FVC of less than 50%. FEV1 was also less than 50% of predicted. This is worrisome for a severe restrictive disorder and may be secondary to obesity hypoventilation disorder, a neuropathy, myopathy or dystrophy. Patient's elevated bicarbonate level of 45 in addition to hypoxemia is also consistent with obesity hypoventilation syndrome. Recommend patient undergo an ABG in the morning.If her PTH in the morning is stable, consider discharge. Continue to wean oxygen as tolerated. (2) JOSUE (obstructive sleep apnea) Conclusion/Plan: She reports a prior diagnosis of obstructive sleep apnea. She reports she lost a considerable amount of weight but unfortunately has gained the weight back and feels she most likely has obstructive sleep apnea again. She has been scheduled for a home sleep study, however, a home sleep study will not be helpful when the patient is on oxygen. Patient to undergo a home sleep patient to undergo an in lab sleep study on June 05 2023 (3) Morbid (severe) obesity with alveolar hypoventilation Conclusion/Plan: Patient to be discharged home on oxygen and hopefully will receive a positive airway pressure device soon. (4) Type 2 diabetes mellitus Conclusion/Plan: Hemoglobin A1c is 6.3.Continue glargine at 20 units each evening. (5) Hypertension Conclusion/Plan: Continue, hydrochlorothiazide, diltiazem and losartan. (6) Paroxysmal atrial fibrillation Conclusion/Plan: --Diagnosed with atrial fibrillation in late 2022. She follows with cardiology at [facility] and has undergone a stress test and TTE. --Continue diltiazem and Eliquis. - Current Meds Current Meds: Current Medications Generic Name Dose Route Start Last Admin Trade Name Freq PRN Reason Stop Dose Admin Apixaban 5 mg 05/09/23 21:00 05/13/23 20:35 Apixaban 5 Mg Tablet PO 5 mg BID FIORELLA Administration Diltiazem HCl 180 mg 05/10/23 09:00 05/13/23 08:19 Diltiazem Cd 180 Mg Capsule PO 180 mg DAILY FIORELLA Administration Hydrochlorothiazide 25 mg 05/10/23 09:00 05/13/23 08:19 Hydrochlorothiazide 25 Mg Tablet PO 25 mg DAILY FIORELLA Administration Insulin Glargine-yfgn 20 unit 05/09/23 21:00 05/13/23 20:37 Insulin Glargine-Yfgn 300 Unit/3 Ml Pen SUBQ 20 unit QPM FIORELLA Administration Insulin Human Lispro 5 unit 05/10/23 08:00 05/13/23 17:08 Insulin Lispro 300 Unit/3 Ml Pen SUBQ 5 unit TIDWM FIORELLA Administration Protocol Insulin Human Lispro 3 - 11 unit 05/09/23 21:00 05/13/23 20:37 Insulin Lispro 300 Unit/3 Ml Pen SUBQ 5 unit 0800,1200,1700,2100 [facility] Administration Protocol Lisinopril 40 mg 05/10/23 09:00 05/13/23 08:19 Lisinopril 20 Mg Tablet PO 40 mg DAILY FIORELLA Administration Sodium Chloride 10 ml 05/10/23 01:00 05/13/23 17:08 Sodium Chloride Flush 0.9% 10 Ml Syringe IVP 10 ml 0100,0900,1700 [facility] Administration - Lab Result Fish Bone Diagrams: 05/09/23 16:04 05/13/23 07:57 Subjective - Subjective Patient Reports: Other (Alert. Denies chest pain, dyspnea and shortness of breath. No other complaints at this time.) Objective Vital Signs: Vital Signs - 24 hr 05/12/23 05/12/23 05/12/23 23:00 23:55 23:59 Temperature Heart Rate Heart Rate [ 75 Monitoring electrodes] Respiratory 21 22 Rate Blood Pressure 172/79 H [Right Brachial artery] O2 Saturation 92 95 If not protocol 2 2 : Oxygen Flow, liters/minute 05/13/23 05/13/23 05/13/23 00:00 00:01 00:02 Temperature Heart Rate Heart Rate [ Monitoring electrodes] Respiratory 21 21 19 Rate Blood Pressure [Right Brachial artery] O2 Saturation 92 88 L 81 L If not protocol : Oxygen Flow, liters/minute 05/13/23 05/13/23 05/13/23 00:03 00:04 00:05 Temperature Heart Rate Heart Rate [ Monitoring electrodes] Respiratory 24 23 23 Rate Blood Pressure [Right Brachial artery] O2 Saturation 78 L 74 L 73 L If not protocol : Oxygen Flow, liters/minute 05/13/23 05/13/23 05/13/23 00:06 00:07 01:00 Temperature Heart Rate Heart Rate [ Monitoring electrodes] Respiratory 16 17 Rate Blood Pressure [Right Brachial artery] O2 Saturation 73 L 90 L If not protocol 2 2 : Oxygen Flow, liters/minute 05/13/23 05/13/23 05/13/23 02:30 02:40 05:43 Temperature 37.3 C Heart Rate 72 Heart Rate [ 69 Monitoring electrodes] Respiratory 12 18 Rate Blood Pressure 133/54 H [Right Brachial artery] O2 Saturation 98 98 If not protocol : Oxygen Flow, liters/minute 05/13/23 05/13/23 05/13/23 06:00 07:00 08:00 Temperature 37.3 C Heart Rate 64 Heart Rate [ 77 Monitoring electrodes] Respiratory 18 Rate Blood Pressure 152/67 H [Right Brachial artery] O2 Saturation 94 If not protocol 2 2 : Oxygen Flow, liters/minute 05/13/23 05/13/23 05/13/23 08:38 10:42 12:26 Temperature 36.9 C Heart Rate Heart Rate [ 83 Monitoring electrodes] Respiratory 20 Rate Blood Pressure 135/79 H [Right Brachial artery] O2 Saturation If not protocol 2 2 2 : Oxygen Flow, liters/minute 05/13/23 05/13/23 05/13/23 12:50 14:59 16:25 Temperature Heart Rate Heart Rate [ Monitoring electrodes] Respiratory Rate Blood Pressure [Right Brachial artery] O2 Saturation If not protocol 2 2 2 : Oxygen Flow, liters/minute 05/13/23 05/13/23 05/13/23 17:10 19:00 20:18 Temperature 37.2 C 36.9 C Heart Rate Heart Rate [ 81 81 Monitoring electrodes] Respiratory 17 15 Rate Blood Pressure 140/86 H 151/91 H [Right Brachial artery] O2 Saturation 96 98 If not protocol 2 2 2 : Oxygen Flow, liters/minute 05/13/23 21:00 Temperature Heart Rate Heart Rate [ Monitoring electrodes] Respiratory Rate Blood Pressure [Right Brachial artery] O2 Saturation If not protocol 2 : Oxygen Flow, liters/minute Oxygen O2 Source Nasal cannula Oxygen Flow Rate 6 I&O (Last 24 Hrs): Intake and Output Totals x24h 05/11/23 05/12/23 05/13/23 23:59 23:59 23:59 Intake Total 1030 1630 677 Output Total 1100 350 Balance -70 1280 677 General: Alert, Oriented x3 HEENT: Atraumatic Neck: Supple, No JVD Neuro: Alert, Disoriented Cardiovascular: Other (Positive S1-S2 no extra heart sounds.) Respiratory: Other (Fair air exchange in all lung floyd no wheezing no crackles.) Abdomen: Other (Obese, soft nontender nondistended positive bowel sounds) - Results Results: Laboratory Results WBC 11.8 x10^3/uL (4.8-10.8) H 05/09/23 16:04 RBC 4.91 10^6/uL (4.20-5.40) 05/09/23 16:04 Hgb 11.3 g/dL (12.0-16.0) L 05/09/23 16:04 Hct 42.5 % (37.0-47.0) 05/09/23 16:04 MCV 86.6 fL (81.0-99.0) 05/09/23 16:04 MCH 23.0 pg (27.0-31.0) L 05/09/23 16:04 MCHC 26.6 g/dL (32.0-36.0) L 05/09/23 16:04 RDW 16.3 % (12.0-15.0) H 05/09/23 16:04 Plt Count 424 10^3/uL (130-450) 05/09/23 16:04 MPV 9.7 fL (7.9-10.8) 05/09/23 16:04 Neut # (Auto) 10.0 10^3/uL (1.5-6.6) H 05/09/23 16:04 Lymph # (Auto) 1.2 10^3/uL (1.5-3.5) L 05/09/23 16:04 Ness # (Auto) 0.5 10^3/uL (0.0-1.0) 05/09/23 16:04 Eos # (Auto) 0.0 10^3/uL (0.0-0.7) 05/09/23 16:04 Baso # (Auto) 0.1 10^3/uL (0.0-0.1) 05/09/23 16:04 Absolute Nucleated RBC 0.00 x10^3/uL 05/09/23 16:04 Nucleated RBC % 0.0 /100WBC 05/09/23 16:04 Manual Slide Review Indicated 05/09/23 16:04 Platelet Estimate NORMAL (130-450,000) (NORMAL) 05/09/23 16:04 Platelet Morphology NORMAL APPEARANCE (NORMAL) 05/09/23 16:04 RBC Morph Micro Appear 1+ ANISOCYTOSIS (NORMAL) 1+ MICROCYTOSIS (NORMAL) 1+ HYPOCHROMASIA (NORMAL) 05/09/23 16:04 RBC Morph Micro Appear 1+ ANISOCYTOSIS (NORMAL) 1+ MICROCYTOSIS (NORMAL) 1+ HYPOCHROMASIA (NORMAL) 05/09/23 16:04 RBC Morph Micro Appear 1+ ANISOCYTOSIS (NORMAL) 1+ MICROCYTOSIS (NORMAL) 1+ HYPOCHROMASIA (NORMAL) 05/09/23 16:04 D-Dimer < 200.0 ng/mL (200.0-255.0) L 05/09/23 18:11 Bld Gas Analysis Time 0852 05/12/23 08:42 Sample Site LEFT RADIAL 05/12/23 08:42 ABG pH 7.37 (7.35-7.45) 05/12/23 08:42 ABG pCO2 73 mmHg (34-45) H* 05/12/23 08:42 ABG pO2 36 mmHg (80-100) L* 05/12/23 08:42 ABG HCO3 41.2 mmol/L (22.0-26.0) H 05/12/23 08:42 ABG Total CO2 43.4 MMOL/L (21.0-29.0) H* 05/12/23 08:42 ABG O2 Saturation 68 % (94-98) L* 05/12/23 08:42 ABG Base Excess 12.8 mmol/L (-2.0-3.0) H 05/12/23 08:42 Antonio Test POSITIVE 05/12/23 08:42 Respiration Rate 12 b/min 05/11/23 06:10 Room Air YES 05/11/23 01:30 O2 Delivery Device BiPAP 05/11/23 06:10 O2 Liters/Min 6.00 LPM 05/09/23 18:27 FiO2 35.00 05/11/23 06:10 EPAP 5 cmH2O 05/11/23 06:10 IPAP 10 cmH2O 05/11/23 06:10 Sodium 140 mmol/L (135-145) 05/13/23 07:57 Potassium 4.2 mmol/L (3.5-4.5) 05/13/23 07:57 Chloride 88 mmol/L (101-111) L 05/13/23 07:57 Carbon Dioxide > 45 mmol/L (21-32) H* 05/13/23 07:57 Anion Gap TNP 05/13/23 07:57 BUN 15 mg/dL (6-20) 05/13/23 07:57 Creatinine 0.6 mg/dL (0.6-1.3) 05/13/23 07:57 Estimated GFR (MDRD) 102 (>89) 05/13/23 07:57 Glucose 159 mg/dL (74-104) H 05/13/23 07:57 POC Whole Bld Glucose 210 mg/dL (70 - 100) H 05/13/23 20:27 Estimat Average Glucose 134 mg/dL (70-100) H 05/10/23 05:17 Hemoglobin A1c % 6.3 % (4.27-6.07) H 05/10/23 05:17 Calcium 10.0 mg/dL (8.5-10.3) 05/13/23 07:57 Phosphorus 3.9 mg/dL (2.5-5.0) 05/13/23 07:57 Magnesium 1.7 mg/dL (1.7-2.3) 05/13/23 07:57 Total Bilirubin 0.6 mg/dL (0.2-1.0) 05/09/23 16:04 AST 20 IU/L (10-42) 05/09/23 16:04 ALT 22 IU/L (10-60) 05/09/23 16:04 Alkaline Phosphatase 56 IU/L (42-121) 05/09/23 16:04 B-Natriuretic Peptide 188 pg/mL (5-100) H 05/10/23 09:06 Total Protein 7.8 g/dL (6.4-8.9) 05/09/23 16:04 Albumin 3.9 g/dL (3.2-5.5) 05/09/23 16:04 Globulin 3.9 g/dL (2.1-4.2) 05/09/23 16:04 Albumin/Globulin Ratio 1.0 (1.0-2.2) 05/09/23 16:04 Lipase 34 U/L (11-82) 05/09/23 16:04 Nasal Adenovirus (PCR) NOT DETECTED 05/09/23 15:55 Nasal B. parapertussis DNA (PCR) NOT DETECTED 05/09/23 15:55 Nasal Coronavir 229E PCR NOT DETECTED 05/09/23 15:55 Nasal Coronavir HKU1 PCR NOT DETECTED 05/09/23 15:55 Nasal Coronavir NL63 PCR NOT DETECTED 05/09/23 15:55 Nasal Coronavir OC43 PCR NOT DETECTED 05/09/23 15:55 Nasal Enterovir/Rhinovir PCR NOT DETECTED 05/09/23 15:55 Nasal Influenza B PCR NOT DETECTED 05/09/23 15:55 Nasal Influenza A PCR NOT DETECTED 05/09/23 15:55 Nasal Parainfluen 1 PCR NOT DETECTED 05/09/23 15:55 Nasal Parainfluen 2 PCR NOT DETECTED 05/09/23 15:55 Nasal Parainfluen 3 PCR NOT DETECTED 05/09/23 15:55 Nasal Parainfluen 4 PCR NOT DETECTED 05/09/23 15:55 Nasal RSV (PCR) NOT DETECTED 05/09/23 15:55 Nasal Screen MRSA (PCR) NEGATIVE (NEGATIVE) 05/11/23 03:03 Nasal B.pertussis DNA PCR NOT DETECTED 05/09/23 15:55 Nasal C.pneumoniae (PCR) NOT DETECTED 05/09/23 15:55 Lucho Human Metapneumo PCR NOT DETECTED 05/09/23 15:55 Nasal M.pneumoniae (PCR) NOT DETECTED 05/09/23 15:55 Nasal SARS-CoV-2 (PCR) NOT DETECTED 05/09/23 15:55 Sepsis Event Note (H) - Evaluation Current Stage of Sepsis: Ruled out
[2023-05-14] MEDS: METOPROLOL 5 MG/5 ML VIAL IVP STA (01:28)
[2023-05-14 02:05] LABS: MAGNESIUM 1.8 mg/dL (1.7-2.3)
[2023-05-14 02:13] LABS: ALBUMIN 3.4 g/dL (3.2-5.5); ALKALINE PHOSPHATASE 56 IU/L (42-121); ALT ALANINE AMINOTRANSFERASE 54 IU/L (10-60); AST ASPARTATE AMINOTRANSFERASE 24 IU/L (10-42); BILIRUBIN,TOTAL 0.6 mg/dL (0.2-1.0); BUN - BLOOD UREA NITROGEN 11 mg/dL (6-20); CALCIUM 9.9 mg/dL (8.5-10.3); CARBON DIOXIDE - CO2 > 45 mmol/L (21-32); CHLORIDE 89 mmol/L (101-111); CREATININE 0.6 mg/dL (0.6-1.3); GFR - MDRD 102 (>89); GLUCOSE 168 mg/dL (74-104); POTASSIUM 3.6 mmol/L (3.5-4.5); SODIUM 139 mmol/L (135-145); TOTAL PROTEIN 6.8 g/dL (6.4-8.9)
[2023-05-14] MEDS ORDERED: POTASSIUM CHLORIDE 20 MEQ TABLET PO ONE (02:40)
[2023-05-14] MEDS ORDERED: MAGNESIUM SULFATE 1 GM/2 ML VIAL IVP STA (02:47)
[2023-05-14] MEDS: METOPROLOL 5 MG/5 ML VIAL IVP PRN (03:08)
[2023-05-14] MEDS: MAGNESIUM SULFATE 2 GRAM 1 GM/25 ML BAG IV SCH (03:16)
[2023-05-14] MEDS: POTASSIUM CHLORIDE 20 MEQ TABLET PO STA (03:16)
[2023-05-14] MEDS: diltiaZEM INJ 125 MG in DEXTROSE 5% 100 ML IV SCH (05:57)
[2023-05-14 06:25] LABS: ABG HCO3 42.1 mmol/L (22.0-26.0); ABG PH 7.41 (7.35-7.45); ABG PO2 76 mmHg (80-100)
[2023-05-14 06:26] LABS: ABG BASE EXCESS 14.3 mmol/L (-2.0-3.0); ABG OXYGEN SATURATION 95 % (94-98); ALLEN TEST POSITIVE
[2023-05-14 06:28] LABS: ABG PCO2 68 mmHg (34-45); ABG TCO2 44.2 MMOL/L (21.0-29.0)
--- NOTE | 2023-05-14 07:53 | PROVIDER PROGRESS NOTE ---
Assessment/Plan - Problem List (2) Atrial fibrillation with rapid ventricular response Assessment/Plan: Patient went into atrial fibrillation with rapid ventricular spot response overnight. She has been placed on a diltiazem drip and she continues to have heart rate in the [id number] range. Plan is to continue diltiazem drip with goal of obtaining heart rate 10299. Consider transitioning to amiodarone if patient does not respond to diltiazem drip. (2) Morbid (severe) obesity with alveolar hypoventilation Assessment/Plan: Given patient's compensated arterial blood gas with a pCO2 of 68, pH of 7.4 and a serum bicarbonate of greater than 45 in association with her recent pulmonary function test is consistent with a diagnosis of obesity with alveolar hyp oventilation. Continue oxygen continuously. Patient would benefit from positive airway pressure therapy. Pulmonary function test were performed today which revealed an FVC of less than 50%. FEV1 was also less than 50% of predicted. This is worrisome for a severe restrictive disorder and may be secondary to obesity hypoventilation disorder, a neuropathy, myopathy or dystrophy. Continue to wean oxygen to the lowest possible flow rate (3) JOSUE (obstructive sleep apnea) Conclusion/Plan: She reports a prior diagnosis of obstructive sleep apnea. She reports she lost a considerable amount of weight but unfortunately has gained the weight back and feels she most likely has obstructive sleep apnea again. She has been scheduled for a home sleep study, however, a home sleep study will not be helpful when the patient is on oxygen. Patient to undergo a home sleep patient to undergo an in lab sleep study on June 05 2023.Clinically, it is highly likely patient continues to have a diagnosis of obstructive sleep apnea. (4) Type 2 diabetes mellitus Conclusion/Plan: Hemoglobin A1c is 6.3.Continue glargine at 20 units each evening. (5) Hypertension Conclusion/Plan: Continue, hydrochlorothiazide, diltiazem and losartan. (6) Paroxysmal atrial fibrillation Conclusion/Plan: --Diagnosed with atrial fibrillation in late 2022. She follows with cardiology at [facility] and has undergone a stress test and TTE. --Continue diltiazem and Eliquis. - Current Meds Current Meds: Current Medications Generic Name Dose Route Start Last Admin Trade Name Freq PRN Reason Stop Dose Admin Apixaban 5 mg 05/09/23 21:00 05/13/23 20:35 Apixaban 5 Mg Tablet PO 5 mg BID FIORELLA Administration Hydrochlorothiazide 25 mg 05/10/23 09:00 05/13/23 08:19 Hydrochlorothiazide 25 Mg Tablet PO 25 mg DAILY FIORELLA Administration Magnesium Sulfate 1 gm in 25 mls @ 25 mls/hr 05/14/23 03:00 05/14/23 04:49 Magnesium Sulfate IV 05/15/23 02:59 Infused ONCE FIORELLA Infusion Diltiazem HCl 125 mg/ Dextrose 125 mls @ 5 mls/hr 05/14/23 06:00 05/14/23 06:35 IV 15 mg/hr .Q25H FIORELLA 15 mls/hr Titration Protocol 5 MG/HR Insulin Glargine-yfgn 20 unit 05/09/23 21:00 05/13/23 20:37 Insulin Glargine-Yfgn 300 Unit/3 Ml Pen SUBQ 20 unit QPM FIORELLA Administration Insulin Human Lispro 5 unit 05/10/23 08:00 05/13/23 17:08 Insulin Lispro 300 Unit/3 Ml Pen SUBQ 5 unit TIDWM [facility] Administration Protocol Insulin Human Lispro 3 - 11 unit 05/09/23 21:00 05/13/23 20:37 Insulin Lispro 300 Unit/3 Ml Pen SUBQ 5 unit 0800,1200,1700,2100 [facility] Administration Protocol Lisinopril 40 mg 05/10/23 09:00 05/13/23 08:19 Lisinopril 20 Mg Tablet PO 40 mg DAILY FIORELLA Administration Metoprolol Tartrate 2.5 mg 05/14/23 02:49 05/14/23 04:49 Metoprolol 5 Mg/5 Ml Vial IVP 2.5 mg Q5MIN PRN Administration HR > 105 Sodium Chloride 10 ml 05/10/23 01:00 05/14/23 01:55 Sodium Chloride Flush 0.9% 10 Ml Syringe IVP 10 ml 0100,0900,1700 [facility] Administration - Lab Result Fish Bone Diagrams: 05/09/23 16:04 05/14/23 01:38 Subjective - Subjective Patient Reports: Other (Alert. Denies chest pain, shortness of breath. Patient went into atrial fibrillation with rapid ventricular rate during the night.) Objective Vital Signs: Vital Signs - 24 hr 05/13/23 05/13/23 05/13/23 08:00 08:38 10:42 Temperature 37.3 C Heart Rate [ 77 Monitoring electrodes] Respiratory 18 Rate Blood Pressure Blood Pressure 152/67 H [Right Brachial artery] O2 Saturation 94 If not protocol 2 2 2 : Oxygen Flow, liters/minute 05/13/23 05/13/23 05/13/23 12:26 12:50 14:59 Temperature 36.9 C Heart Rate [ 83 Monitoring electrodes] Respiratory 20 Rate Blood Pressure Blood Pressure 135/79 H [Right Brachial artery] O2 Saturation If not protocol 2 2 2 : Oxygen Flow, liters/minute 05/13/23 05/13/23 05/13/23 16:25 17:10 19:00 Temperature 37.2 C Heart Rate [ 81 Monitoring electrodes] Respiratory 17 Rate Blood Pressure Blood Pressure 140/86 H [Right Brachial artery] O2 Saturation 96 If not protocol 2 2 2 : Oxygen Flow, liters/minute 05/13/23 05/13/23 05/13/23 20:18 21:00 23:00 Temperature 36.9 C Heart Rate [ 81 Monitoring electrodes] Respiratory 15 Rate Blood Pressure Blood Pressure 151/91 H [Right Brachial artery] O2 Saturation 98 If not protocol 2 2 2 : Oxygen Flow, liters/minute 05/14/23 05/14/23 05/14/23 00:00 01:00 01:28 Temperature Heart Rate [ 79 Monitoring electrodes] Respiratory 17 Rate Blood Pressure 164/99 H Blood Pressure 155/62 H [Right Brachial artery] O2 Saturation 96 If not protocol 2 2 : Oxygen Flow, liters/minute 05/14/23 05/14/23 05/14/23 01:45 01:50 02:00 Temperature Heart Rate [ 124 H 121 H 116 H Monitoring electrodes] Respiratory 19 Rate Blood Pressure Blood Pressure 137/119 H 135/93 H 133/96 H [Right Brachial artery] O2 Saturation 95 If not protocol 2 : Oxygen Flow, liters/minute 05/14/23 05/14/23 05/14/23 02:30 03:00 03:08 Temperature Heart Rate [ 120 H Monitoring electrodes] Respiratory Rate Blood Pressure 121/59 L Blood Pressure 112/61 [Right Brachial artery] O2 Saturation If not protocol 2 : Oxygen Flow, liters/minute 05/14/23 05/14/23 05/14/23 03:10 03:20 03:30 Temperature Heart Rate [ 120 H 123 H 116 H Monitoring electrodes] Respiratory 17 Rate Blood Pressure Blood Pressure 121/59 L 120/71 113/54 L [Right Brachial artery] O2 Saturation 91 L If not protocol 2 : Oxygen Flow, liters/minute 05/14/23 05/14/23 05/14/23 03:38 04:00 04:30 Temperature Heart Rate [ 115 H 124 H Monitoring electrodes] Respiratory 13 Rate Blood Pressure 113/54 L Blood Pressure 92/56 L 110/66 [Right Brachial artery] O2 Saturation 95 If not protocol 2 : Oxygen Flow, liters/minute 05/14/23 05/14/23 05/14/23 04:49 05:00 05:15 Temperature Heart Rate [ 123 H 118 H Monitoring electrodes] Respiratory 14 Rate Blood Pressure 113/81 H Blood Pressure 128/111 H 117/66 [Right Brachial artery] O2 Saturation 91 L If not protocol 2 : Oxygen Flow, liters/minute 05/14/23 05/14/23 05/14/23 05:19 05:30 05:45 Temperature Heart Rate [ 126 H 122 H Monitoring electrodes] Respiratory Rate Blood Pressure 117/66 Blood Pressure 135/63 H 104/63 [Right Brachial artery] O2 Saturation If not protocol : Oxygen Flow, liters/minute 05/14/23 05/14/23 05/14/23 05:57 06:00 06:10 Temperature Heart Rate [ 122 H 122 H Monitoring electrodes] Respiratory 13 Rate Blood Pressure 104/63 Blood Pressure 120/101 H 96/63 [Right Brachial artery] O2 Saturation 92 If not protocol 2 : Oxygen Flow, liters/minute 05/14/23 05/14/23 05/14/23 06:20 06:30 06:40 Temperature Heart Rate [ 125 H 132 H 123 H Monitoring electrodes] Respiratory Rate Blood Pressure Blood Pressure 114/86 H 107/67 111/94 H [Right Brachial artery] O2 Saturation If not protocol : Oxygen Flow, liters/minute 05/14/23 05/14/23 06:50 07:00 Temperature Heart Rate [ 124 H 117 H Monitoring electrodes] Respiratory 19 Rate Blood Pressure Blood Pressure 113/56 L 104/60 [Right Brachial artery] O2 Saturation 92 If not protocol 2 : Oxygen Flow, liters/minute Oxygen O2 Source Nasal cannula Oxygen Flow Rate 6 I&O (Last 24 Hrs): Intake and Output Totals x24h 05/12/23 05/13/23 05/14/23 23:59 23:59 23:59 Intake Total 1630 677 29.333 Output Total 350 Balance 1280 677 29.333 General: Alert, Oriented x3 HEENT: Atraumatic Neck: No JVD Neuro: Alert, Non Focal Cardiovascular: Other (Positive S1-S2 regularly irregular no extra heart sounds.) Respiratory: Other (Good air exchange in all lung floyd no wheezing no crackles) Abdomen: Other (Soft nontender nondistended positive bowel sounds) Extremities: No cyanosis, No edema Skin: No rashes - Results Results: Laboratory Results WBC 11.8 x10^3/uL (4.8-10.8) H 05/09/23 16:04 RBC 4.91 10^6/uL (4.20-5.40) 05/09/23 16:04 Hgb 11.3 g/dL (12.0-16.0) L 05/09/23 16:04 Hct 42.5 % (37.0-47.0) 05/09/23 16:04 MCV 86.6 fL (81.0-99.0) 05/09/23 16:04 MCH 23.0 pg (27.0-31.0) L 05/09/23 16:04 MCHC 26.6 g/dL (32.0-36.0) L 05/09/23 16:04 RDW 16.3 % (12.0-15.0) H 05/09/23 16:04 Plt Count 424 10^3/uL (130-450) 05/09/23 16:04 MPV 9.7 fL (7.9-10.8) 05/09/23 16:04 Neut # (Auto) 10.0 10^3/uL (1.5-6.6) H 05/09/23 16:04 Lymph # (Auto) 1.2 10^3/uL (1.5-3.5) L 05/09/23 16:04 [place] # (Auto) 0.5 10^3/uL (0.0-1.0) 05/09/23 16:04 Eos # (Auto) 0.0 10^3/uL (0.0-0.7) 05/09/23 16:04 Baso # (Auto) 0.1 10^3/uL (0.0-0.1) 05/09/23 16:04 Absolute Nucleated RBC 0.00 x10^3/uL 05/09/23 16:04 Nucleated RBC % 0.0 /100WBC 05/09/23 16:04 Manual Slide Review Indicated 05/09/23 16:04 Platelet Estimate NORMAL (130-450,000) (NORMAL) 05/09/23 16:04 Platelet Morphology NORMAL APPEARANCE (NORMAL) 05/09/23 16:04 RBC Morph Micro Appear 1+ ANISOCYTOSIS (NORMAL) 1+ MICROCYTOSIS (NORMAL) 1+ HYPOCHROMASIA (NORMAL) 05/09/23 16:04 RBC Morph Micro Appear 1+ ANISOCYTOSIS (NORMAL) 1+ MICROCYTOSIS (NORMAL) 1+ HYPOCHROMASIA (NORMAL) 05/09/23 16:04 RBC Morph Micro Appear 1+ ANISOCYTOSIS (NORMAL) 1+ MICROCYTOSIS (NORMAL) 1+ HYPOCHROMASIA (NORMAL) 05/09/23 16:04 D-Dimer < 200.0 ng/mL (200.0-255.0) L 05/09/23 18:11 Bld Gas Analysis Time 62205/14/23 06:15 Sample Site RIGHT RADIAL 05/14/23 06:15 ABG pH 7.41 (7.35-7.45) 05/14/23 06:15 ABG pCO2 68 mmHg (34-45) H* 05/14/23 06:15 ABG pO2 76 mmHg (80-100) L 05/14/23 06:15 ABG HCO3 42.1 mmol/L (22.0-26.0) H 05/14/23 06:15 ABG Total CO2 44.2 MMOL/L (21.0-29.0) H* 05/14/23 06:15 ABG O2 Saturation 95 % (94-98) 05/14/23 06:15 ABG Base Excess 14.3 mmol/L (-2.0-3.0) H 05/14/23 06:15 Antonio Test POSITIVE 05/14/23 06:15 Respiration Rate 12 b/min 05/11/23 06:10 Room Air YES 05/11/23 01:30 O2 Delivery Device NASAL CANNULA 05/14/23 06:15 O2 Liters/Min 2.00 LPM 05/14/23 06:15 FiO2 28.00 05/14/23 06:15 EPAP 5 cmH2O 05/11/23 06:10 IPAP 10 cmH2O 05/11/23 06:10 Sodium 139 mmol/L (135-145) 05/14/23 01:38 Potassium 3.6 mmol/L (3.5-4.5) 05/14/23 01:38 Chloride 89 mmol/L (101-111) L 05/14/23 01:38 Carbon Dioxide > 45 mmol/L (21-32) H* 05/14/23 01:38 Anion Gap TNP 05/14/23 01:38 BUN 11 mg/dL (6-20) 05/14/23 01:38 Creatinine 0.6 mg/dL (0.6-1.3) 05/14/23 01:38 Estimated GFR (MDRD) 102 (>89) 05/14/23 01:38 Glucose 168 mg/dL (74-104) H 05/14/23 01:38 POC Whole Bld Glucose 210 mg/dL (70 - 100) H 05/13/23 20:27 Estimat Average Glucose 134 mg/dL (70-100) H 05/10/23 05:17 Hemoglobin A1c % 6.3 % (4.27-6.07) H 05/10/23 05:17 Calcium 9.9 mg/dL (8.5-10.3) 05/14/23 01:38 Phosphorus 3.9 mg/dL (2.5-5.0) 05/13/23 07:57 Magnesium 1.8 mg/dL (1.7-2.3) 05/14/23 01:38 Total Bilirubin 0.6 mg/dL (0.2-1.0) 05/14/23 01:38 AST 24 IU/L (10-42) 05/14/23 01:38 ALT 54 IU/L (10-60) 05/14/23 01:38 Alkaline Phosphatase 56 IU/L (42-121) 05/14/23 01:38 B-Natriuretic Peptide 188 pg/mL (5-100) H 05/10/23 09:06 Total Protein 6.8 g/dL (6.4-8.9) 05/14/23 01:38 Albumin 3.4 g/dL (3.2-5.5) 05/14/23 01:38 Globulin 3.4 g/dL (2.1-4.2) 05/14/23 01:38 Albumin/Globulin Ratio 1.0 (1.0-2.2) 05/14/23 01:38 Lipase 34 U/L (11-82) 05/09/23 16:04 Nasal Adenovirus (PCR) NOT DETECTED 05/09/23 15:55 Nasal B. parapertussis DNA (PCR) NOT DETECTED 05/09/23 15:55 Nasal Coronavir 229E PCR NOT DETECTED 05/09/23 15:55 Nasal Coronavir HKU1 PCR NOT DETECTED 05/09/23 15:55 Nasal Coronavir NL63 PCR NOT DETECTED 05/09/23 15:55 Nasal Coronavir OC43 PCR NOT DETECTED 05/09/23 15:55 Nasal Enterovir/Rhinovir PCR NOT DETECTED 05/09/23 15:55 Nasal Influenza B PCR NOT DETECTED 05/09/23 15:55 Nasal Influenza A PCR NOT DETECTED 05/09/23 15:55 Nasal Parainfluen 1 PCR NOT DETECTED 05/09/23 15:55 Nasal Parainfluen 2 PCR NOT DETECTED 05/09/23 15:55 Nasal Parainfluen 3 PCR NOT DETECTED 05/09/23 15:55 Nasal Parainfluen 4 PCR NOT DETECTED 05/09/23 15:55 Nasal RSV (PCR) NOT DETECTED 05/09/23 15:55 Nasal Screen MRSA (PCR) NEGATIVE (NEGATIVE) 05/11/23 03:03 Nasal B.pertussis DNA PCR NOT DETECTED 05/09/23 15:55 Nasal C.pneumoniae (PCR) NOT DETECTED 05/09/23 15:55 Lucho Human Metapneumo PCR NOT DETECTED 05/09/23 15:55 Nasal M.pneumoniae (PCR) NOT DETECTED 05/09/23 15:55 Nasal SARS-CoV-2 (PCR) NOT DETECTED 05/09/23 15:55 Sepsis Event Note (H) - Evaluation Current Stage of Sepsis: Ruled out
[2023-05-14] MEDS: diltiaZEM INJ 5 MG/ML VIAL IVP ONE (08:15)
[2023-05-14] MEDS: ALBUTEROL NEB 2.5 MG/3 ML INH PRN (10:45)
[2023-05-14] MEDS: diltiaZEM 30 MG TABLET PO SCH ×2 (11:56→17:07)
[2023-05-14] MEDS ORDERED: ALBUTEROL 1 PUFF INH PRN (15:02)
[2023-05-15 05:55] LABS: BASOPHILS # (AUTO) 0.1 10^3/uL (0.0-0.1); BASOPHILS % (AUTO) 0.6 %; EOSINOPHILS # (AUTO) 0.2 10^3/uL (0.0-0.7); EOSINOPHILS % (AUTO) 2.1 %; HCT - HEMATOCRIT 40.5 % (37.0-47.0); HGB - HEMOGLOBIN 11.3 g/dL (12.0-16.0); LYMPHOCYTES # (AUTO) 1.5 10^3/uL (1.5-3.5); LYMPHOCYTES % (AUTO) 16.6 %; MEAN CORPUSCULAR HEMOGLOBIN 23.4 pg (27.0-31.0); MEAN CORPUSCULAR HGB CONC 27.9 g/dL (32.0-36.0); MEAN PLATELET VOLUME 9.6 fL (7.9-10.8); MONOCYTES # (AUTO) 0.8 10^3/uL (0.0-1.0); MONOCYTES % (AUTO) 9.4 %; NEUTROPHILS # (AUTO) 6.3 10^3/uL (1.5-6.6); PLT - PLATELET COUNT 313 10^3/uL (130-450); RED BLOOD COUNT 4.82 10^6/uL (4.20-5.40); RED CELL DISTRIBUTION WIDTH 16.5 % (12.0-15.0); WHITE BLOOD COUNT 8.9 x10^3/uL (4.8-10.8)
[2023-05-15 06:15] LABS: PHOSPHORUS 6.1 mg/dL (2.5-5.0)
[2023-05-15 06:19] LABS: CALCIUM 9.8 mg/dL (8.5-10.3); CREATININE 0.7 mg/dL (0.6-1.3); POTASSIUM 4.1 mmol/L (3.5-4.5)
[2023-05-15] MEDS: diltiaZEM CD 240 MG CAPSULE PO SCH (09:51)
--- NOTE | 2023-05-15 15:01 | Discharge Plan ---
Discharge Plan Problem Reviewed?: Yes Disposition: Home, Self Care Prescriptions: diltiaZEM CD [Cardizem Cd] 240 mg PO DAILY #30 cap hydroCHLOROthiazide [Hydrodiuril] 25 mg PO DAILY #30 tab Insulin Aspart [Insulin Aspart Flexpen] 5 units SUBQ TIDWM #1 ea Insulin Glargine [Lantus Solostar] 20 unit SUBQ HS #1 ea Mdi: Albuterol 2 puffs INH Q4H PRN #1 each PRN Reason: Dyspnea Diet: Diabetic Activity Restrictions: No Restrictions Shower Restrictions: No Driving Restrictions: No Weight Bearing: Full Weight Instruction Topics: Apnea Obstructive Sleep Ch Health Concerns: History of Present Illness Per Dr. Headley's History and Physical: Patient is a 62-year-old female with a past medical history of mild intermittent pAfib, asthma, hypertension, hyperlipidemia, morbid obesity, obstructive sleep apnea not on CPAP, insulin-dependent type 2 diabetes who presented to the ED due to complaints of shortness of breath. In the ED she was noted to be hypoxic requiring 4 L of oxygen via nasal cannula. Patient reported that she had been feeling short of breath for approximately 3 weeks. This began after having carpal tunnel surgery and increased steadily. She denies any chest pain, hemoptysis. She was evaluated by an urgent care clinic where she was given a Z-Arnoldo which provided minimal relief. In the ED a chest x-ray was performed which was unremarkable. Lab work primarily revealed an elevated bicarbonate. She was given nebulizer treatment and started on dexamethasone. Her viral panel was negative. Patient reports that she has not been using her CPAP for several years as she had lost a significant amount of weight but now has gained it back. She is in line to get a repeat sleep study. Patient is a non-smoker. She does not use any inhalers at home. No prior history of lung disease. Hospital Course: Jennifer Hill was admitted to the hospital and treatment was initiated with oxygen. A viral panel was completed which was negative. It was felt that because she was on anticoagulation that she was at low risk for pulmonary embolism. During her hospitalization, she was able to be weaned down from 6 L to 2 to 3 LPM by nasal cannula. She had 2 arterial blood gases performed in the morning after 6 AM which revealed a pH of approximately 7.4 with a pCO2 that range between 6873. Laura ent is compensated for her chronic hypercarbic respiratory failure. During this hospitalization she underwent spirometry on May 13, 2023 which revealed an FEV1 of 1.16 liters (41% of predicted), FVC of 1.37 L (37% of predicted and an FEV1 to FVC ratio of 78%. Spirometry is worrisome for a severe restrictive lung disorder and may be secondary to obesity hypoventilation disorder, a neuropathy, myopathy or dystrophy. Clinically, obesity hypoventilation syndrome is most consistent with patient's underlying disorder. Recommend she undergo a complete pulmonary function test as an outpatient. Given patient's compensated arterial blood gas with a pCO2 of 68, pH of 7.4 and a serum bicarbonate of greater than 45 in association with her recent pulmonary function test is consistent with a diagnosis of obesity with alveolar hypoventilation. Arrangements have been made for patient to undergo a in lab sleep study on June 04 through the [facility] sleep clinic. On May 14, 2023 patient's hospital course was complicated by atrial fibrillation with rapid ventricular rate. She required a diltiazem drip to obtain rate control and then she was transition back to diltiazem by mouth. Her rate has been stable for more than 24 hours and she is stable for discharge. During this hospitalization, paperwork was submitted for patient to obtain a positive airway pressure device (specifically a bilevel positive airway pressure device). The decision from the [employer] is still pending. Plan of Treatment: 1. Continue all medications as prescribed. 2. Arrangements will be made for you to obtain a positive airway pressure device if you qualify through a local [employer] company. We will contact you once this decision has been made. 3. Please contact the [facility] sleep clinic in [place] to confirm that you are scheduled for a sleep study on June 05, 2023. They will most likely give you instructions with regards to your in lab sleep study appointment. 4. Recommend using your oxygen at all times. Oxygen has been prescribed for you and should be available to you on Tuesday. Patient is discharged home on a mobile portable concentrator. Recommend 2 L/min during the day and 3 L/min during sleep. 5. Recommend undergoing a complete pulmonary function test as an outpatient. 6. Recommend obtaining an echocardiogram to evaluate heart function in the setting of hypoxemia and sleep disordered breathing. 7. Recommend avoiding the use of alcohol, opiate-based pain medications and benzodiazepines until you follow-up with your sleep provider. 8. For Glargine (Lantus) Please take Glargine in the evening (20 Units subcutaneously) and use a sliding scale at mealtimes and before bedtime for blood sugar control. Please also take 5 units of Aspiratate in addition to your sliding scale before meals. For Aspartate: Basal insulin dose = 5 units subcutaneously If Glucose is less than 60, please eat some food, chocolate or have some apple juice or orange juice. If Glucose less than 100 do not give any insulin If Glucose 100-139, give basal insulin (5 units subcutaneously) dose only If Glucose greater than or equal to 140, give basal insulin plus sliding scale: Moderate High Dose Algorithm 141-180 2 unit 181-225 4 units 226-275 6 units 276-325 8 units 326-375 10 units > 375 contact MD Please keep a log of your blood sugars and doses of insulin with each dose for 2 weeks prior to seeing your health provider. Care Goals: Goal of care is to continue with independent functioning and to improve quality of life through the use of positive airway pressure therapy if indicated. Assessment: (2) Atrial fibrillation with rapid ventricular response Assessment/Plan: Patient had episode of atrial fibrillation with rapid ventricular response during this hospitalization. She was treated with IV diltiazem and transition to p.o. diltiazem. Currently she is taking long-acting diltiazem 240 mg daily. (2) Morbid (severe) obesity with alveolar hypoventilation Assessment/Plan: Patient's hypercarbic respiratory failure, elevated serum bicarbonate, and recent pulmonary function tests are consistent with a diagnosis of obesity h ypoventilation syndrome. Patient is scheduled to undergo an in lab sleep study on June 04 through the [facility] sleep clinic She also may possibly qualify for a bilevel positive airway device given chronic elevation of her pCO2, chronic elevation of her serum bicarb, supplemental oxygen requirements and recent pulmonary function testing (3) JOSUE (obstructive sleep apnea) Conclusion/Plan: From a clinical standpoint, patient is at high risk for obstructive sleep apnea. She is scheduled to undergo further testing for obstructive sleep apnea on June 05, 2023 through the [facility] sleep clinic. (4) Type 2 diabetes mellitus Conclusion/Plan: Hemoglobin A1c is 6.3.Continue glargine at 20 units each evening. Recommend patient continue glargine 20 units at bedtime and coverage with aspartate with meals. Recommend patient discuss her insulin regiment with her primary care provider. (5) Hypertension Conclusion/Plan: Continue, hydrochlorothiazide, and diltiazem (6) Paroxysmal atrial fibrillation Conclusion/Plan: Diagnosed with atrial fibrillation in late 2022. She follows with cardiology at [facility] and has undergone a stress test and transthoracic echocardiogram. The results of her most recent transthoracic echocardiogram are not known. 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 Continue diltiazem and Eliquis. No Smoking: If you smoke, Please STOP! Call for help. Follow-up with: JOEY GARCIA PA-C [Primary Care Provider] -
--- NOTE | 2023-05-15 15:03 | DISCHARGE SUMMARY ---
Discharge Summary Admit Date: 05/10/23 Discharge Date: 05/15/23 Discharging Provider: Aroldo Guevara MD Primary Care Provider: Christine MARTINEZ Code Status: Attempt Resuscitation Discharge Disposition: 01 Home, Self Care - DIAGNOSES Admission Diagnoses: (1) Hypoxia (2) JOSUE (obstructive sleep apnea) (3) Morbid (severe) obesity with alveolar hypoventilation (4) Type 2 diabetes mellitus (5) Hypertension (6) Paroxysmal atrial fibrillation Discharge Diagnoses with Status of Each Condition: (1) Atrial fibrillation with rapid ventricular response - Resolved (2) Morbid (severe) obesity with alveolar hypoventilation - Continue work up as outpatient with sleep study (3) JOSUE (obstructive sleep apnea) - Continue workup as outpatient with sleep study. (4) Type 2 diabetes mellitus - Chronic (5) Hypertension - Chronic (6) Paroxysmal atrial fibrillation - Chronic - HPI History of Present Illness: Per Dr. Headley's History and Physical: Patient is a 62-year-old female with a past medical history of mild intermittent pAfib, asthma, hypertension, hyperlipidemia, morbid obesity, obstructive sleep apnea not on CPAP, insulin-dependent type 2 diabetes who presented to the ED due to complaints of shortness of breath. In the ED she was noted to be hypoxic requiring 4 L of oxygen via nasal cannula. Patient reported that she had been feeling short of breath for approximately 3 weeks. This began after having carpal tunnel surgery and increased steadily. She denies any chest pain, hemoptysis. She was evaluated by an urgent care clinic where she was given a Z-Arnoldo which provided minimal relief. In the ED a chest x-ray was performed which was unremarkable. Lab work primarily revealed an elevated bicarbonate. She was given nebulizer treatment and started on dexamethasone. Her viral panel was negative. Patient reports that she has not been using her CPAP for several years as she had lost a significant amount of weight but now has gained it back. She is in line to get a repeat sleep study. Patient is a non-smoker. She does not use any inhalers at home. No prior history of lung disease. - HOSPITAL COURSE Hospital Course: Jennifer Hill was admitted to the hospital and treatment was initiated with oxygen. A viral panel was completed which was negative. It was felt that because she was on anticoagulation that she was at low risk for pulmonary embolism. During her hospitalization, she was able to be weaned down from 6 L to 2 to 3 LPM by nasal cannula. She had 2 arterial blood gases performed in the morning after 6 AM which revealed a pH of approximately 7.4 with a pCO2 that range between 6873. Patient is compensated for her chronic hypercarbic respiratory failure. During this hospitalization she underwent spirometry on May 13, 2023 which revealed an FEV1 of 1.16 liters (41% of predicted), FVC of 1.37 L (37% of pr edicted and an FEV1 to FVC ratio of 78%. Spirometry is worrisome for a severe restrictive lung disorder and may be secondary to obesity hypoventilation disorder, a neuropathy, myopathy or dystrophy. Clinically, obesity hypoventilation syndrome is most consistent with patient's underlying disorder. Recommend she undergo a complete pulmonary function test as an outpatient. Given patient's compensated arterial blood gas with a pCO2 of 68, pH of 7.4 and a serum bicarbonate of greater than 45 in association with her recent pulmonary function test is consistent with a diagnosis of obesity with alveolar hypoventilation. Arrangements have been made for patient to undergo a in lab sleep study on June 04 through the [facility] sleep clinic. On May 14, 2023 patient's hospital course was complicated by atrial fibrillation with rapid ventricular rate. She required a diltiazem drip to obt ain rate control and then she was transition back to diltiazem by mouth. Her rate has been stable for more than 24 hours and she is stable for discharge. During this hospitalization, paperwork was submitted for patient to obtain a positive airway pressure device (specifically a bilevel positive airway pressure device). The decision from the [employer] is still pending. - ALLERGIES Allergies/Adverse Reactions: Allergies Allergy/AdvReac Type Severity Reaction Status Date / Time Penicillins Allergy Anaphylaxis Verified 05/09/23 15:34 Sulfa (Sulfonamide Allergy Anaphylaxis Verified 05/09/23 15:34 Antibiotics) - MEDICATIONS Home Medications: Ambulatory Orders Medication Instructions Recorded Confirmed Apixaban [Eliquis] 5 mg PO BID 05/09/23 05/10/23 Atorvastatin Calcium 40 mg PO HS 05/09/23 05/10/23 Metformin HCl [Metformin ER 1,000 mg PO BIDWM 05/09/23 05/10/23 Osmotic] Insulin Aspart [Insulin Aspart 5 units SUBQ TIDWM #1 ea 05/15/23 Flexpen] Insulin Glargine [Lantus Solostar] 20 unit SUBQ HS #1 ea 05/15/23 Mdi: Albuterol 2 puffs INH Q4H PRN #1 each 05/15/23 diltiaZEM CD [Cardizem Cd] 240 mg PO DAILY #30 cap 05/15/23 hydroCHLOROthiazide [Hydrodiuril] 25 mg PO DAILY #30 tab 05/15/23 - PHYSICAL EXAM AT DISCHARGE General Appearance: positive: No acute distress, Alert Eyes Bilateral: positive: No scleral icterus Neck: positive: No JVD, Trachea midline Respiratory: positive: Other (Fair air exchange in all lung floyd no wheezing no crackles.) Cardiovascular: positive: Other (Positive S1-S2 no extra heart sounds.) Abdomen: positive: Nml bowel sounds, No distention Skin: positive: No rash Extremities: positive: Non-tender Neurologic/Psychiatric: positive: Oriented x3, Motor nml - LABS Result Diagrams: 05/15/23 04:55 05/15/23 04:55 - SEPSIS Current Stage of Sepsis: Ruled out - FOLLOW UP Follow Up: Follow-up in 2-4 weeks with PCP, Christine MARTINEZ - TIME SPENT Time Spent in Discharge (Minutes): 40 (40 minutes spent coording discharge with nursing staff and patient and discussing home medications and diabetes medications. )
[2023-05-15 18:25] VITALS: BP 152/86; O2SAT 93
== END 2023-05-15 18:29 | disposition home or self-care (01) | DRG 206 ==
LOC: EDUNIT# → ED 15:22 → MS2 17:32 → ICU 05-11 02:33
PROVIDERS: ADMIT Family Medicine; ATTEND Internal Medicine
DX: E66.2 Morbid (severe) obesity with alveolar hypoventilation (principal); J96.12 Chronic respiratory failure with hypercapnia; I48.91 Unspecified atrial fibrillation; E11.9 Type 2 diabetes mellitus without complications; I10 Essential (primary) hypertension; I48.0 Paroxysmal atrial fibrillation; J06.9 Acute upper respiratory infection, unspecified; J45.909 Unspecified asthma, uncomplicated; E78.00 Pure hypercholesterolemia, unspecified; R11.0 Nausea; R19.7 Diarrhea, unspecified; Z20.818 Contact with and (suspected) exposure to other bacterial communicable diseases; Z20.822 Contact with and (suspected) exposure to COVID-19; Z20.828 Contact with and (suspected) exposure to other viral communicable diseases; Z68.37 Body mass index [BMI] 37.0-37.9, adult; Z79.01 Long term (current) use of anticoagulants; Z79.4 Long term (current) use of insulin; Z79.84 Long term (current) use of oral hypoglycemic drugs; Z79.899 Other long term (current) drug therapy; Z88.0 Allergy status to penicillin; Z88.2 Allergy status to sulfonamides
CPT/HCPCS: 36415; 36600; 71045; 80048; 80053; 82803; 83036; 83690; 83735; 83880; 84100; 85025; 85379; 87150; 87633; 93005; 94640; 94660; 94761; 96374; 97116; 97161; 97165; 97530; 97535; 99285; A9270; J1815; J7120; J7512

== ENCOUNTER 2023-06-05 20:49 | Outpatient (CLI) | payer BC | END 2023-06-05 20:50 | disposition home or self-care (01) | LOC: SC 20:49 | PROVIDERS: ATTEND Nurse Practitioner Family | DX: G47.33 Obstructive sleep apnea (adult) (pediatric) (principal); E66.9 Obesity, unspecified; Z68.38 Body mass index [BMI] 38.0-38.9, adult | CPT/HCPCS: 95811 ==

== ENCOUNTER 2023-06-22 09:10 | Outpatient (CLI) | payer BC ==
--- NOTE | 2023-06-22 09:43 | Sleep Patient Instructions ---
Sleep Center Visit Summary - Patient Visit Information Reason for Visit: Sleep study follow-up - Patient Instructions Additional Instructions: You are being started on CPAP therapy with pressure setting at 4-15 cmH2O. You will need to call the sleep care office to set up your follow up once you have your CPAP machine to check compliance and response to therapy at that time. You may call the office with any concerns about pressure feeling too low or too much for adjustment, if needed. You should contact DME supplier for any questions or concerns about mask or equipment. You will be completing a titration sleep study in our sleep lab where you will be sleeping with the CPAP machine on and we will be adjusting your pressures to find your optimal pressure settings. Please call office to schedule a follow up appointment in the sleep care office one month after obtaining new device or after titration study to review results. - Clinic Information Contact: [facility] [address] [place] [address] [email or web address] T: [phone]
--- NOTE | 2023-06-22 09:49 | SLEEP CARE CONSULTATION ---
Information from patient questionnaire entered by Isabelle Bustos. I have reviewed and concur with the information entered by Isabelle Bustos. This document represents the service I personally performed and the decisions made by me, Pricila Lainez ARNP. History of Present Illness Service Date and Time: 06/22/2023 0910 Initial Vance Sleepiness Scale score: 8 (04/06/23) Current Vance Sleepiness Scale score: 9 (06/22/23) Additional HPI information: WAI HOLLEY returns for follow up and results of the recently performed polysomnography. The sleep study showed moderate obstructive sleep apnea with an average AHI of 28.8 and antoinette oxygen saturation of 61%. I explained the pathophysiology behind obstructive sleep apnea. We then spent quite a bit of time discussing different treatment options. For mild obstructive sleep apnea, surgery and oral appliance are alternatives to nasal CPAP therapy but in moderate or severe cases, nasal CPAP is the most effective and reliable treatment. I reviewed the impact of weight changes on sleep apnea and strongly recommended losing weight. After some discussion, the patient opted to go with the nasal CPAP therapy. Nasal autoCPAP set at 4-15 cmH20 will be ordered with rationale explained. A manual titration study will be ordered to find optimal pressure. I explained how CPAP machine works and what to expect when using the machine. Using CPAP every night in order to get used to it was emphasized. Patient advised to put CPAP mask on before getting into bed so as not to fall asleep without CPAP. To assist acclimation to CPAP use, it could also be used for a short time during day while reading or watching TV. The patient was instructed to call the CPAP supplier to discuss any mechanical problem that may occur. If the mask given is uncomfortable or is difficult to keep on through the night even with adjustment, contact the CPAP supplier as many will replace with another mask style if notified before 30 days. If snoring or perceives is not getting enough air or too much air from the machine, notify this office. Patient does not drink alcohol. Patient was cautioned about risks of drowsy driving until sleepiness symptoms resolve. Patient denies drowsy driving when using her oxygen during the day. Sleep Study - Results Type of Sleep Study: Polysomnography (COMPLETED 06/05/23 PT DID NOT QUALIFY FOR SPLIT NIGHT DUE TO INSOMNIA) Prior sleep studies: Yes Polysomnography/Home Sleep Study results: IMPRESSION: The quality of the study is good. The patient had poor sleep efficiency. The sleep architecture was abnormal for sleep fragmentation and reduced amount of time spent in REM sleep. Respiratory monitoring showed moderate obstructive sleep apnea-hypopnea (AHI = 28.8) associated with frequent arousals, oxyhemoglobin desaturation and moderate hypoxia (antoinette oxygen saturation of 61%). Baseline oxygen saturation was normal. The respiratory events occurred independently of sleep stage and body position (supine AHI = 30.1; non-supine = 25.79). Snore was light in intensity. There was no significant periodic leg movement of sleep. Cardiac rhythm was normal sinus rhythm without significant arrhythmia. No abnormal behavior (parasomnia) observed during the night. Allergies and Home Medications Known drug allergies: Yes (as listed) Drug allergies reviewed: Yes Home medication list reviewed: Yes (no changes) Allergy and home medication list: Allergies Penicillins Allergy (Verified 06/20/23 08:49) Anaphylaxis Sulfa (Sulfonamide Antibiotics) Allergy (Verified 06/20/23 08:49) Anaphylaxis Review of Systems Review of systems same as previous: No (OBESITY, HYPOVENTLATION SYNDROME) Physical Exam Vital signs obtained and entered by: ISABELLE Ashraf MA Blood Pressure: 163/76 Cuff size: long Heart Rate: 77 O2 Saturation: 97 Height: 5 ft 7 in Weight: 228 lb 3.2 oz Body Mass Index: 35.7 BMI Classification: Obese Impression and Plan 1. Obstructive Sleep Apnea-Hypopnea Syndrome, moderate, with lowest oxygen saturation of 61%. Obviously this is the cause of the patients symptoms of unrefreshed sleep, and excessive daytime sleepiness. Positive pressure therapy could benefit hypertension, diabetes, arrhythmia (Afib) and gastric reflux. As mentioned above, the patient will be started on nasal autoCPAP therapy with pressure set at 4-15 cmH2O. A manual titration study will be completed to find optimal treatment pressure and adjustments needed for her oxygen. She is on 3 L of oxygen during the day and 2 L oxygen at night due to her hypoxemia and diagnosed obesity hypoventilation syndrome. Compliance guidelines also reviewed. A copy of compliance guidelines will be given for reference at check out. 2. Hypoxemia, moderate, with a antoinette oxygen saturation of 61% and 27.2 minutes spent under 90%. Patient was on 2 L nocturnal oxygen during the night of the study. The baseline oxygen saturation was normal with an average oxygen saturation of 92%. 3. Obesity, unspecified. Currently patients BMI is 35.7. Obesity increases the risk of apnea, CPAP pressure requirements and overall health risks especially cardiovascular and diabetes. Thus patient is advised to lose weight. * Nasal auto CPAP therapy, pressure at 4-15 cm H2O. * Titration study * Attempt to lose weight. * Avoid alcohol consumption near bedtime. * Avoid supine sleep until using CPAP. * The patient is again cautioned about driving until sleepiness completely resolves. * Return one month after CPAP obtained. I will assess response to therapy and compliance at that time. We will also followup after titration study to review results. Counseling Topics: Weight loss health impact Prescriptions: Auto CPAP Plan: start CPAP and Titration study; then followup Visit Type: In Office Time Spent with Patient (minutes): 28 Provider Statement: I spent 100% of the Face to Face Visit with the patient with greater than 50% spent counseling the patient and coordination of care.
[2023-06-22 09:57] VITALS: BP 163/76; O2SAT 97
== END 2023-06-22 09:11 | disposition home or self-care (01) ==
LOC: SC 09:10
PROVIDERS: ATTEND Nurse Practitioner Family
DX: G47.33 Obstructive sleep apnea (adult) (pediatric) (principal); R09.02 Hypoxemia; E66.9 Obesity, unspecified; Z68.35 Body mass index [BMI] 35.0-35.9, adult
CPT/HCPCS: 99212; 99213

== ENCOUNTER 2023-08-17 15:44 | Outpatient (CLI) | payer BC ==
--- NOTE | 2023-08-17 16:14 | Sleep Patient Instructions ---
Sleep Center Visit Summary - Patient Visit Information Reason for Visit: First compliance follow-up - Patient Instructions Additional Instructions: You were here for follow up of CPAP therapy. You will be continued on CPAP therapy with pressure at 7-11 cmH2O. Please let us know if the pressure change is uncomfortable and we can make further adjustments of the pressure. You should follow up with sleep care in 1-2 months. You may contact us sooner for any questions or concerns. - Clinic Information Contact: [facility] [address] [place] [address] [email or web address] T: [phone]
--- NOTE | 2023-08-17 16:20 | SLEEP CARE CONSULTATION ---
Information from patient questionnaire entered by Isabelle Bustos. I have reviewed and concur with the information entered by Isabelle Bustos. This document represents the service I personally performed and the decisions made by me, Pricila Lainez ARNP. History of Present Illness Service Date and Time: 08/17/2023 1544 Previous diagnosis: Moderate, Obstructive Sleep Apnea-Hypopnea Syndrome AHI: 28.8 (on 06/05/23) Reason for follow up: first compliance Equipment type: CPAP (RESMED Airsense 11, s/u 07/04/23) Equipment obtained from: Other ([facility]; getting supplies) Mask style: Nasal Backup mask available: No Prior sleep studies: Yes Type of Sleep Study: Polysomnography HPI additional information: WAI HOLLEY was diagnosed to have moderate, AHI 28.8, obstructive sleep apnea-hypopnea syndrome and returned today for CPAP therapy first compliance follow-up. Sleep Study - Results Type of Sleep Study: Polysomnography Prior sleep studies: Yes CPAP Compliance Data - Data Reviewed with Patient Average duration of nightly device use: 8 HRS 36 MINS Compliance rate %: 93 (07/04/23-08/02/23; 29/30 days used) Current pressure setting (cmH2O): 4-15 (median 5.5, avg 9.6, max 10.8) Average residual AHI: 2.6 Central apnea: 0 Obstructive apnea: 1.5 Hypopnea: 1 Average large leak: 2.2 L/min On Oxygen: Yes (3 L) Oxygen usage: Continuous Subjective Patient concerns: reports: other (sometimes seems hot). denies: aerophagia, m ask discomfort, air blowing in eyes, mask leak noise, condensation in mask/hose, nasal congestion, dry mouth, nose, throat, epistaxis Observed to snore while using device: No Current pressure setting perceived as: comfortable (slightly feel not enough air) On therapy, patient: reports: sleeping better, awakening more refreshed, being more awake and alert during the day, more rested overall. denies: drowsiness while driving Initial [place] Sleepiness Scale score: 8 (04/06/23) Current [place] Sleepiness Scale score: 4 (08/17/23) Allergies and Home Medications Known drug allergies: Yes (as listed) Drug allergies reviewed: Yes Home medication list reviewed: Yes (no changes) Allergy and home medication list: Allergies Penicillins Allergy (Verified 08/15/23 11:42) Anaphylaxis Sulfa (Sulfonamide Antibiotics) Allergy (Verified 08/15/23 11:42) Anaphylaxis Review of Systems Review of systems same as previous: Yes (NO CHANGE) Physical Exam Vital signs obtained and entered by: ISABELLE Ashraf MA Blood Pressure: 143/65 (LEFT ARM) Cuff size: regular Heart Rate: 70 O2 Saturation: 97 Height: 5 ft 7 in Weight: 221 lb 3.2 oz Weight change since last visit: 7 lb loss Body Mass Index: 34.6 BMI Classification: Obese Impression and Plan 1. Obstructive Sleep Apnea-Hypopnea Syndrome, moderate, with good treatment compliance and good apnea control. On CPAP therapy, the patient has better sleep quality and is more rested overall. She says she was informed by [facility] that her wrapping machine tender has ordered a BiPAP machine for her because it was ordered after a pulse oximetry test that she did. She thinks she was using the CPAP at that time, but is not completely sure. I will have to try to contact her wrapping machine tender to try to determine if change is needed. The patients pressure will be changed to autoCPAP 7-11 cmH20 to reflect pressure being used. Patient advised to contact me if pressure change is uncomfortable so that it can be adjusted. Goals for apnea control discussed. Patient's apnea severity and rationale for treatment to reduce apnea, improve sleep quality and reduce cardiovascular and cerebrovascular events was reviewed. I also reviewed the benefit of consistent device use of CPAP for hypertension, arrhythmia, diabetes, gastric reflux. 2. Obesity, unspecified. Currently patients BMI is 34.6. She has been losing weight. Obesity increases the risk of apnea, CPAP pressure requirements and overall health risks especially cardiovascular and diabetes. Thus patient is advised to continue to try to lose weight. * Change auto CPAP pressure to 7-11 cmH2O * I will touch base with Dr. Darya Richards at [facility] about her care * Notify me if snoring with mask or feeling that the pressure is too much or too little * Continue to try to lose weight * Call this office if any problems using CPAP * Return for follow up in 1-2 months, or sooner if concerns arise Adjust device pressure to (cmH2O): 7-11 Counseling Topics: Weight loss health impact Follow up with Sleep Care in: 1-2 months Visit Type: In Office Time Spent with Patient (minutes): 29 Provider Statement: I spent 100% of the Face to Face Visit with the patient with greater than 50% spent counseling the patient and coordination of care.
[2023-08-17 16:23] VITALS: BP 143/65; O2SAT 97
== END 2023-08-17 15:45 | disposition home or self-care (01) ==
LOC: SC 15:44
PROVIDERS: ATTEND Nurse Practitioner Family
DX: G47.33 Obstructive sleep apnea (adult) (pediatric) (principal); E66.9 Obesity, unspecified; Z68.34 Body mass index [BMI] 34.0-34.9, adult
CPT/HCPCS: 99212; 99213

== ENCOUNTER 2023-09-09 10:20 | Outpatient (CLI) | payer BC ==
--- NOTE | 2023-09-12 09:45 | Mammography Report ---
BILATERAL DIGITAL SCREENING MAMMOGRAM 3D/2D: 09/09/2023 CLINICAL: Routine screening. Comparison is made to exams dated: 08/31/2021 mammogram and 12/28/2018 mammogram - [facility]. There are scattered areas of fibroglandular density in both breasts (category b / 25%-50% glandular t issue). No significant masses, calcifications, or other findings are seen in either breast. There has been no significant interval change. IMPRESSION: NEGATIVE There is no mammographic evidence of malignancy. A 1 year screening mammogram is recommended. Based on the Tyrer Cuzick model (a risk assessment model) the patient's lifetime risk is 7.7% and her 10 year risk is 3.2%. According to the ACR, ACS, and NCCN guidelines, an annual breast MRI exam shirley g with mammogram is recommended if the patient's lifetime risk is 20% or greater. This exam was interpreted at Station ID: [id number]. NOTE: For mammograms, a report in lay terms will be sent to the patient. Approximately 15% of breast malignancies will not be visualized mammographically. In the management of a palpable breast mass, a negative mammogram must not discourage biopsy of a clinically suspicious lesion. Electronically Signed By: Yuri renae/jayna:09/09/2023 11:46:20 letter sent: No_Letter ACR BI-RADS Category 1: Negative 3341F PARENCHYMAL PATTERN: (A) - The breast(s) demonstrate(s) scattered fibroglandular densities. BI-RADS CATEGORY: (1) - 1 RECOMMENDATION: (ANNUAL) - Recommend routine annual screening mammography. [id number] 1 year screening LATERALITY: (B)
== END 2023-09-09 10:21 | disposition home or self-care (01) ==
LOC: DI 10:20
PROVIDERS: ATTEND Physician Assistant
DX: Z12.31 Encounter for screening mammogram for malignant neoplasm of breast (principal); R92.323 Mammographic fibroglandular density, bilateral breasts